=== PATIENT | female | born 1965 | race Caucasian/White ===

== ENCOUNTER 2017-03-19 03:00 | Emergency (ER) | payer MEDICARE, MEDICAID ==
[~2017-03-19 03:00] MED LIST: FLUO-202 PO; LORA-1456 PO; ONDA4TAB PO; PROM-110 PO; PROM25SU8 PR
[2017-03-19 03:10] VITALS: BP 145/97
[2017-03-19] MEDS ORDERED: LIRA0.6P3 SQ (03:15)
[2017-03-19] MEDS ORDERED: AMIT150T21 PO (03:15)
[2017-03-19] MEDS ORDERED: ATR80PT PO (03:15)
--- NOTE | 2017-03-19 03:28 | ER Report ---
History and Physical Time Seen By MD: 03:15 Hx. of Stated Complaint: BILATERAL FLANK PAIN AND "T-STRAP" PAIN. PT. STATES SHE JUST MOVED HERE AND HAS BEEN MORE ACTIVE THAN USUAL. DENIES ANY URINARY SYMPTOMS, NAUSE, VOMITING OR DIARRHEA. PT. STATES SHE HAS TRIED IBUPROFEN, HEAT AND ICE WITH NO RELIEF. HPI/ROS CHIEF COMPLAINT: Low back pain HISTORY OF PRESENT ILLNESS: 52-year-old with history of lumbar fusion presents with low back pain 2 days non-radiating nonmigrating in lower paraspinal muscles denies any traumatic mechanism pain feels like a muscular spasm is present bilaterally no hematuria dysuria or other urinary symptoms. No fevers chills nausea. She has had benefit from going in her daughter's Whirlpool bath with jets which helped. Ibuprofen was tried today. She has no muscle relaxers at home. She denies abdominal pain or other problems. No other concerns or complaints today. REVIEW OF SYSTEMS: Respiratory: No cough, no dyspnea. Cardiovascular: No chest pain, no palpitations. Gastrointestinal: No vomiting, no abdominal pain. Musculoskeletal: No extremity pain Allergies: Coded Allergies: Penicillins (Verified Allergy, Unknown, ANAPHYLAXIS, 03/19/17) Home Meds Reported Medications Atorvastatin (LIPITOR) 80 Mg Tab, 1 TAB PO QDAY, TAB 03/19/17 Liraglutide (VICTOZA 2-BEST) 0.6 Mg/0.1 Ml Pen.injctr, 0.6 MG SQ 03/19/17 Amitriptyline Hcl (AMITRIPTYLINE HCL) 150 Mg Tablet, 150 MG PO QHS, TAB 03/19/17 Fluoxetine Hcl (PROZAC) 20 Mg Capsule, 60 MG PO QDAY, CAPSULE 06/29/16 Discontinued Reported Medications Promethazine Hcl (PROMETHAZINE HCL) 25 Mg Tablet, PO Q8H, TAB 06/29/16 Ondansetron (ZOFRAN ODT) 4 Mg Tab.rapdis, PO Q12H, TAB.ANDI 06/29/16 Discontinued Scripts Lorazepam (ATIVAN) 1 Mg Tablet, 1 MG PO Q4-6H for 7 Days Prov:MARIELOS CORONA MD 06/29/16 Promethazine HCl (Phenergan) 25 Mg Supp.rect, 25 SUPP.RECT CA 2-4XD for 7 Days, #20 Prov:MARIELOS CORONA MD 06/29/16 Ondansetron (ZOFRAN ODT) 4 Mg Tab.rapdis, 4 MG PO Q6H Y for nausea, #20 TAB 0 Refills Prov:MARIELOS CORONA MD 06/29/16 Hx Substance Use Disorder: No Constitutional Vital Sign - Last 24 Hours 03/19/17 03:10 Temp 97.7 Pulse 98 Resp 20 B/P (MAP) 145/97 Pulse Ox 96 O2 Delivery Room Air Physical Exam General Appearance: The patient is alert, has no immediate need for airway protection and no signs of toxicity. No acute distress Eyes: Pupils equal and round no pallor or injection. ENT, Mouth: Mucous membranes are moist. Respiratory: There are no retractions, lungs are clear to auscultation. Cardiovascular: Regular rate and rhythm. No murmurs gallops or rubs Gastrointestinal: Abdomen is soft and non tender, no masses, bowel sounds normal. Neurological: [ ] Skin: Warm and dry, no rashes. Musculoskeletal: Neck is supple non tender. Extremities are nontender, nonswollen and have full range of motion. Paraspinous muscles and mild spasm bilaterally for muscle is mildly tender in the lumbar region DIFFERENTIAL DIAGNOSIS: After history and physical exam differential diagnosis was considered for muscle spasm no signs of epidural abscess transverse myelitis or cauda equina syndrome no signs of aneurysm or dissection no signs of kidney stones or pyelonephritis Medical Decision Making ED Course/Re-evaluation ED Course Home care follow-up and reasons to return were discussed including heat packs and use of prescription medications Decision to Disposition Date: Mar 19, 2017 Decision to Disposition Time: 03:28 Depart Departure Latest Vital Signs Vital Signs Date Time Temp Pulse Resp B/P (MAP) Pulse Ox O2 Delivery O2 Flow Rate FiO2 03/19/17 03:10 97.7 98 20 145/97 96 Room Air Impression: Primary Impression: Muscle spasm Additional Impression: Lumbago Condition: Improved Disposition: HOME OR SELF-CARE New Scripts Cyclobenzaprine Hcl (CYCLOBENZAPRINE HCL) 10 Mg Tablet 10 MG PO Q8H Y for MUSCLE SPASMS, #20 TAB 0 Refills Prov: CINDA RIVERA MD 03/19/17 Patient Instructions: Muscle Spasm (ED) Problem Qualifiers CINDA RIVERA MD Mar 19, 2017 03:28
[2017-03-19] MEDS ORDERED: CYCL10TA29 PO (03:31)
[2017-03-19] MEDS ORDERED: CYCLOBENZAPRINE HCL 10 MG TH ONE (03:45)
[2017-03-19] MEDS ORDERED: CYCLOBENZAPRINE HCL 10 MG TH PO ONE ×2 (03:50→03:55)
== END 2017-03-19 03:47 | disposition home or self-care (01) ==
LOC: ER 03:16
DX: M62.830 Muscle spasm of back (principal); M54.5 Low back pain
CPT/HCPCS: 99281

== ENCOUNTER 2017-04-24 14:45 | Emergency (ER) | payer MEDICARE ==
[~2017-04-24 14:45] MED LIST changes: +AMIT150T21 PO; +ATR80PT PO; +CYCL10TA29 PO; +LIRA0.6P3 SQ
--- NOTE | 2017-04-24 14:56 | ER Report ---
History and Physical Time Seen By MD: 00:00 Hx. of Stated Complaint: PATIENT REPORTS 3 WEEKS OF EAR INFECTION THAT WON'T CLEAR UP AND ONSET OF BACK PAIN TODAY HPI/ROS CHIEF COMPLAINT: Left ear pain and left back pain HISTORY OF PRESENT ILLNESS: 52-year-old female smoker comes emergency Department complaining of 2-3 weeks of left-sided ear pain patient states that she went to an outpatient and to her primary care was placed on antibiotics and still has fullness and hearing loss in her left ear patient says she was washing dishes earlier today and felt the muscles pull in her left lateral side of her back no shortness of breath no cough no fever chills no nausea vomiting chest pain no additional complaints noted REVIEW OF SYSTEMS: Respiratory: No cough, no dyspnea. Cardiovascular: No chest pain, no palpitations. Gastrointestinal: No vomiting, no abdominal pain. Musculoskeletal: Left-sided back pain Remainder of the 14 system rev: Yes Allergies: Coded Allergies: Penicillins (Verified Allergy, Unknown, ANAPHYLAXIS, 03/19/17) coconut (Verified Allergy, Unknown, 03/19/17) diphenhydramine (Verified Allergy, Unknown, 03/19/17) ketorolac (Verified Allergy, Unknown, 03/19/17) Home Meds Reported Medications Atorvastatin (LIPITOR) 80 Mg Tab, 1 TAB PO QDAY, TAB 03/19/17 Liraglutide (VICTOZA 2-BEST) 0.6 Mg/0.1 Ml Pen.injctr, 0.6 MG SQ 03/19/17 Amitriptyline Hcl (AMITRIPTYLINE HCL) 150 Mg Tablet, 150 MG PO QHS, TAB 03/19/17 Discontinued Reported Medications Fluoxetine Hcl (PROZAC) 20 Mg Capsule, 60 MG PO QDAY, CAPSULE 06/29/16 Discontinued Scripts Cyclobenzaprine Hcl (CYCLOBENZAPRINE HCL) 10 Mg Tablet, 10 MG PO Q8H Y for MUSCLE SPASMS, #20 TAB 0 Refills Prov:CINDA RIVERA MD 03/19/17 Reviewed Nurses Notes: Yes Old Medical Records Reviewed: Yes Hx Substance Use Disorder: No Constitutional Vital Sign - Last 24 Hours 04/24/17 14:50 Temp 97.5 Pulse 100 Resp 20 B/P (MAP) 138/81 Pulse Ox 90 O2 Delivery Room Air Physical Exam General Appearance: The patient is alert, has no immediate need for airway protection and no current signs of toxicity. [ ] Eyes: Pupils equal and round no injection. Respiratory: Chest is non tender, lungs are clear to auscultation. Cardiac: regular rate and rhythm [ ] Gastrointestinal: Abdomen is soft and non tender, no masses, bowel sounds normal. Musculoskeletal: Neck: Neck is supple and non tender. Extremities have full range of motion and are non tender. Skin: No rashes or lesions. Ear examination bilateral TMs are slightly bulging left greater than right otherwise unremarkable no sign of external canal inflammation and irritation no cerumen impaction no damage to the TM noted DIFFERENTIAL DIAGNOSIS: After history and physical exam differential diagnosis was considered for serous otitis muscle strain Medical Decision Making ED Course/Re-evaluation ED Course ED course 52-year-old female left-sided ear fullness and decreased hearing exam shows some fullness been T and we'll refer her to ENT for further evaluation or muscular skeletal back discomfort was reproducible with gentle palpation however was not reproducible with pressure from auscultation with lung sounds unclear if this is truly in a legitimate pain or not however was reproducible clearly not cardiac in nature was very sensitive to the touch evidence any dermal changes consistent with there being a shingles pattern I will bradycardia get a chest x-ray looking for possible pneumothorax and she is a smoker and cardiac Maladies this was normal patient be discharged with muscle relaxers advised to continue take her Tylenol and ibuprofen and follow-up with primary care up ENT for further workup Decision to Disposition Date: Apr 24, 2017 Decision to Disposition Time: 15:27 Depart Departure Latest Vital Signs Vital Signs Date Time Temp Pulse Resp B/P (MAP) Pulse Ox O2 Delivery O2 Flow Rate FiO2 04/24/17 14:50 97.5 100 20 138/81 90 Room Air Impression: Primary Impression: Muscle spasm Additional Impression: Serous otitis media Condition: Improved Disposition: HOME OR SELF-CARE Referrals: RAFFI REYES JR, MD 5 Days New Scripts Cyclobenzaprine Hcl (CYCLOBENZAPRINE HCL) 10 Mg Tablet 10 MG PO TID for PAIN, #9 TAB Prov: JOB MENDOZA MD 04/24/17 Patient Instructions: Muscle Strain (DC) Problem Qualifiers JOB MENDOZA MD Apr 24, 2017 14:56
--- NOTE | 2017-04-24 15:21 | RADIOLOGY IMAGING REPORT ---
FAC[place] [facility] [place]IENT NAME: Divya Girard : 1965 MR: [id number] V: [id number] EXAM DATE: ORDERING PHYSICIAN: JOB MENDOZA TECHNOLOGIST: Location: [facility] Patient: Divya Girard : 1965 Visit/Account:[id number] Date of Sevice: 04/24/2017 2 VIEWS CHEST INDICATION: Left-sided pain. COMPARISON: None available FINDINGS: Cardiomediastinal silhouette and pulmonary vessels within normal limits. There is no focal infiltrate or lobar consolidation. There is no pneumothorax or pleural effusion. No nodule. Upper abdomen is unremarkable. No acute abnormality. IMPRESSION: 1. No acute cardiopulmonary process. Report Dictated By: Jong Urban at 04/24/2017 3:15 PM Report E-Signed By: Jong Urban at 04/24/2017 3:17 PM WSN:[id number]
[2017-04-24] MEDS ORDERED: CYCL10TA29 PO (15:29)
[2017-04-24 15:35] VITALS: BP 124/76
== END 2017-04-24 15:38 | disposition home or self-care (01) ==
LOC: ER 14:50
DX: M62.830 Muscle spasm of back (principal); H65.92 Unspecified nonsuppurative otitis media, left ear
CPT/HCPCS: 71046; 99282

== ENCOUNTER 2017-08-12 18:25 | Emergency (ER) | payer MEDICARE ==
[2017-08-12] MEDS ORDERED: NS(*) 0.9% 1000 ML BAG 1,000 ML IV ONE (18:39)
--- NOTE | 2017-08-12 18:39 | ER Report ---
History and Physical Time Seen By MD: 18:39 Hx. of Stated Complaint: PT REPORTS "I THINK I HAVE PNEUMONIA" PT REPORTS FEELING "LOUSY" ALL WEEK BUT SOB STARTED GETTING WORSE OVER THE WEEKEND, PT REPORTS FEELING "HOT" BUT UNSURE OF FEVER, PT REPORTS DIZZINESS HPI/ROS 52 year old w valverde x 1 week , cough sputum production subjective fever Remainder of the 14 system rev: Yes Allergies: Coded Allergies: Penicillins (Verified Allergy, Unknown, ANAPHYLAXIS, 08/12/17) coconut (Verified Allergy, Unknown, 08/12/17) diphenhydramine (Verified Allergy, Unknown, 08/12/17) ketorolac (Verified Allergy, Unknown, 08/12/17) Home Meds Active Scripts Azithromycin (ZITHROMAX) 250 Mg Tablet, 1 TAB PO QDAY for 4 Days, #4 TAB Prov:CADE WEINBERG 08/12/17 Prednisone (PREDNISONE) 20 Mg Tablet, 20 MG PO BID, #10 TAB Prov:CADE WEINBERG 08/12/17 Reported Medications Hydrocodone Bit/Acetaminophen (NORCO 5-325 TABLET) 1 Each Tablet, 1 EACH PO TID , TAB 08/12/17 Bupropion Hcl (WELLBUTRIN SR) 150 Mg Tablet.er, 150 MG PO QDAY, TAB 08/12/17 Fluoxetine Hcl (PROZAC) 20 Mg Capsule, 60 MG PO QDAY, CAPSULE 08/12/17 Amitriptyline Hcl (AMITRIPTYLINE HCL) 50 Mg Tablet, 50 MG PO QHS, #5 TAB 08/12/17 Liraglutide (VICTOZA 2-ARNIE) 0.6 Mg/0.1 Ml Pen.injctr, 0.6 MG SQ 03/19/17 Discontinued Reported Medications Atorvastatin (LIPITOR) 80 Mg Tab, 1 TAB PO QDAY, TAB 03/19/17 Amitriptyline Hcl (AMITRIPTYLINE HCL) 150 Mg Tablet, 150 MG PO QHS, TAB 03/19/17 Discontinued Scripts Cyclobenzaprine Hcl (CYCLOBENZAPRINE HCL) 10 Mg Tablet, 10 MG PO TID for PAIN, # 9 TAB Prov:JOB MENDOZA MD 04/24/17 Past Medical/Surgical History COPD, migraines Reviewed Nurses Notes: Yes Old Medical Records Reviewed: Yes Hx Substance Use Disorder: No Constitutional Vital Sign - Last 24 Hours 6/25/18 6/25/18 6/25/18 6/25/18 18:30 18:32 18:45 18:52 Temp 98.2 Pulse 90 86 92 92 Resp 24 18 17 B/P (MAP) 135/85 Pulse Ox 92 92 92 O2 Delivery Room Air 08/12/17 08/12/17 08/12/17 08/12/17 18:52 19:00 19:08 19:15 Pulse 89 88 Resp 16 23 Pulse Ox 91 87 95 O2 Delivery Room Air O2 Flow Rate 2.0 08/12/17 08/12/17 08/12/17 08/12/17 19:30 20:00 20:05 20:15 Pulse 84 89 82 Resp 15 12 B/P (MAP) 148/91 (110) 132/78 (96) 08/12/17 08/12/17 08/12/17 08/12/17 20:30 20:45 20:56 20:56 Pulse 85 90 92 Resp 7 40 17 B/P (MAP) 124/64 (84) Pulse Ox 96 O2 Delivery Room Air 08/12/17 08/12/17 21:00 21:15 Pulse 94 95 Resp 20 15 B/P (MAP) 121/75 (90) Intake and Output 08/12/17 08/12/17 08/13/17 15:00 23:00 07:00 Intake Total 1000 ml Balance 1000 ml Physical Exam 52 year old alert anxious, colt throat non reddened, hrr, lungs crackles bilaterally, abd obese bs x 4 Medical Decision Making Data Points Result Diagram: 08/12/17183708/12/17 183 Laboratory Hematology Test 08/12/17 18:38 08/12/17 19:51 Red Blood Count 4.54 M/uL (4.17-5.56) Mean Corpuscular Volume 93.9 fL (80.0-96.0) Mean Corpuscular Hemoglobin 33.3 pg (26.0-33.0) Mean Corpuscular Hemoglobin Concent 35.4 g/dL (32.0-36.0) Red Cell Distribution Width 14.0 % (11.5-14.5) Mean Platelet Volume 9.1 fL (7.2-11.1) Neutrophils (%) (Auto) 61.5 % (39.4-72.5) Lymphocytes (%) (Auto) 27.4 % (17.6-49.6) Monocytes (%) (Auto) 8.2 % (4.1-12.4) Eosinophils (%) (Auto) 2.2 % (0.4-6.7) Basophils (%) (Auto) 0.7 % (0.3-1.4) Nucleated RBC Relative Count (auto) 0.1 /100WBC Neutrophils # (Auto) 5.3 K/uL (2.0-7.4) Lymphocytes # (Auto) 2.4 K/uL (1.3-3.6) Monocytes # (Auto) 0.7 K/uL (0.3-1.0) Eosinophils # (Auto) 0.2 K/uL (0.0-0.5) Basophils # (Auto) 0.1 K/uL (0.0-0.1) Nucleated RBC Absolute Count (auto) 0.01 K/uL D-Dimer Quantitative (PE/DVT) 0.30 ug/ml (0-0.50) Sodium Level 140 mmol/L (137-145) Potassium Level 3.7 mmol/L (3.5-5.0) Chloride Level 104 mmol/L (98-107) Carbon Dioxide Level 26 mmol/L (22-31) Blood Urea Nitrogen 7 mg/dl (7-18) Creatinine 0.70 mg/dl (0.52-1.04) Glomerular Filtration Rate Calc > 60.0 Random Glucose 143 mg/dl (75-110) Calcium Level 9.3 mg/dl (8.4-10.2) Total Bilirubin 0.3 mg/dl (0.2-1.3) Aspartate Amino Transf (AST/SGOT) 40 U/L (0-35) Alanine Aminotransferase (ALT/SGPT) 38 U/L (0-56) Alkaline Phosphatase 90 U/L (0-126) Troponin I < 0.012 ng/ml B-Type Natriuretic Peptide 34 pg/ml (0-100) Total Protein 6.3 g/dl (6.3-8.2) Albumin 3.7 g/dl (3.5-5.0) Urine Color Yellow Urine Clarity Clear Urine pH 6.0 pH (4.8-9.5) Urine Specific [place] 1.012 Urine Protein Negative mg/dL (NEGATIVE) Urine Glucose (UA) Negative mg/dL (NEGATIVE) Urine Ketones Negative mg/dL (NEGATIVE) Urine Blood Negative (NEGATIVE) Urine Nitrite Negative (NEGATIVE) Urine Bilirubin Negative (NEGATIVE) Urine Urobilinogen Negative mg/dL (0.2-1.9) Urine Leukocyte Esterase Negative (NEGATIVE) Urine RBC <1 /HPF (0-2/HPF) Urine WBC 1 /HPF (0-5/HPF) Urine Squamous Epithelial Cells Many /LPF (</=FEW) Urine Bacteria Negative /HPF (NONE-FEW) Urine Mucus Few /HPF (NONE-FEW) Chemistry Test 08/12/17 18:38 08/12/17 19:51 White Blood Count 8.6 k/uL (4.5-11.0) Red Blood Count 4.54 M/uL (4.17-5.56) Hemoglobin 15.1 g/dL (12.0-16.0) Hematocrit 42.7 % (34.0-47.0) Mean Corpuscular Volume 93.9 fL (80.0-96.0) Mean Corpuscular Hemoglobin 33.3 pg (26.0-33.0) Mean Corpuscular Hemoglobin Concent 35.4 g/dL (32.0-36.0) Red Cell Distribution Width 14.0 % (11.5-14.5) Platelet Count 198 K/uL (150-450) Mean Platelet Volume 9.1 fL (7.2-11.1) Neutrophils (%) (Auto) 61.5 % (39.4-72.5) Lymphocytes (%) (Auto) 27.4 % (17.6-49.6) Monocytes (%) (Auto) 8.2 % (4.1-12.4) Eosinophils (%) (Auto) 2.2 % (0.4-6.7) Basophils (%) (Auto) 0.7 % (0.3-1.4) Nucleated RBC Relative Count (auto) 0.1 /100WBC Neutrophils # (Auto) 5.3 K/uL (2.0-7.4) Lymphocytes # (Auto) 2.4 K/uL (1.3-3.6) Monocytes # (Auto) 0.7 K/uL (0.3-1.0) Eosinophils # (Auto) 0.2 K/uL (0.0-0.5) Basophils # (Auto) 0.1 K/uL (0.0-0.1) Nucleated RBC Absolute Count (auto) 0.01 K/uL D-Dimer Quantitative (PE/DVT) 0.30 ug/ml (0-0.50) Glomerular Filtration Rate Calc > 60.0 Calcium Level 9.3 mg/dl (8.4-10.2) Total Bilirubin 0.3 mg/dl (0.2-1.3) Aspartate Amino Transf (AST/SGOT) 40 U/L (0-35) Alanine Aminotransferase (ALT/SGPT) 38 U/L (0-56) Alkaline Phosphatase 90 U/L (0-126) Troponin I < 0.012 ng/ml B-Type Natriuretic Peptide 34 pg/ml (0-100) Total Protein 6.3 g/dl (6.3-8.2) Albumin 3.7 g/dl (3.5-5.0) Urine Color Yellow Urine Clarity Clear Urine pH 6.0 pH (4.8-9.5) Urine Specific [place] 1.012 Urine Protein Negative mg/dL (NEGATIVE) Urine Glucose (UA) Negative mg/dL (NEGATIVE) Urine Ketones Negative mg/dL (NEGATIVE) Urine Blood Negative (NEGATIVE) Urine Nitrite Negative (NEGATIVE) Urine Bilirubin Negative (NEGATIVE) Urine Urobilinogen Negative mg/dL (0.2-1.9) Urine Leukocyte Esterase Negative (NEGATIVE) Urine RBC <1 /HPF (0-2/HPF) Urine WBC 1 /HPF (0-5/HPF) Urine Squamous Epithelial Cells Many /LPF (</=FEW) Urine Bacteria Negative /HPF (NONE-FEW) Urine Mucus Few /HPF (NONE-FEW) Coagulation Test 08/12/17 18:38 D-Dimer Quantitative (PE/DVT) 0.30 ug/ml Urinalysis Test 08/12/17 19:51 Urine Color Yellow Urine Clarity Clear Urine pH 6.0 pH (4.8-9.5) Urine Specific [place] 1.012 Urine Protein Negative mg/dL (NEGATIVE) Urine Glucose (UA) Negative mg/dL (NEGATIVE) Urine Ketones Negative mg/dL (NEGATIVE) Urine Blood Negative (NEGATIVE) Urine Nitrite Negative (NEGATIVE) Urine Bilirubin Negative (NEGATIVE) Urine Urobilinogen Negative mg/dL (0.2-1.9) Urine Leukocyte Esterase Negative (NEGATIVE) Urine RBC <1 /HPF (0-2/HPF) Urine WBC 1 /HPF (0-5/HPF) Urine Squamous Epithelial Cells Many /LPF (</=FEW) Urine Bacteria Negative /HPF (NONE-FEW) Urine Mucus Few /HPF (NONE-FEW) EKG/Imaging Imaging FACILITY: [facility] PATIENT NAME: Divya Girard : 1965 MR: [id number] V: [id number] EXAM DATE: ORDERING PHYSICIAN: CADE WEINBERG TECHNOLOGIST: Location: [facility] Patient: Divya Girard : 1965 Visit/Account:[id number] Date of Sevice: 08/12/2017 Chest single view: HISTORY: Respiratory distress, history of smoking. COMPARISON: 04/24/2017 FINDINGS: Portable chest 1924 hours: Heart size is upper limits of normal. There is prominence of the bronchovascular and interstitial markings and mild peribronchial thickening, new compared to previous. There is no pleural effusion or pneumothorax. No evidence of overt congestive heart failure. IMPRESSION: Increased prominence of the bronchovascular and interstitial markings and peribronchial thickening, findings can be seen with bronchitis or a viral pneumonitis, clinically correlate. There is no radiographic evidence of a focal pneumonia or findings to suggest congestive heart failure. Report Dictated By: Melissa Zee MD at 08/12/2017 8:38 PM Report E-Signed By: Melissa Zee MD at 08/12/2017 8:40 PM WSN:[id number] ED Course/Re-evaluation ED Course Patient received narcotics for severe pack back pain from laying in stretcher this worked very well for her she received 2 nebulizer treatments in the emergency room +125 of Solu-Medrol IV push she tolerated this very well was given a single dose of azithromycin 500 mg we'll send her home on prednisone 40 daily 5 days plus a Z-Arnie Re-evaluation Sat 95% after treatment states that she is feeling better is willing to go home will follow-up with primary care physician diagnosis exacerbation of COPD bronchitis Decision to Disposition Date: Aug 12, 2017 Decision to Disposition Time: 20:51 Depart Departure Latest Vital Signs Vital Signs Date Time Temp Pulse Resp B/P (MAP) Pulse Ox O2 Delivery O2 Flow Rate FiO2 6/25/18 21:15 95 15 08/12/17 21:00 121/75 (90) 08/12/17 20:56 96 Room Air 08/12/17 19:08 2.0 08/12/17 18:32 98.2 Impression: Primary Impression: COPD (chronic obstructive pulmonary disease) Additional Impression: Smoking Condition: Improved Disposition: HOME OR SELF-CARE Referrals: [facility] 2 Days New Scripts Azithromycin (ZITHROMAX) 250 Mg Tablet 1 TAB PO QDAY for 4 Days, #4 TAB Prov: CADE WEINBERG 08/12/17 Prednisone (PREDNISONE) 20 Mg Tablet 20 MG PO BID, #10 TAB Prov: CADE WEINBERG 08/12/17 Patient Instructions: COPD (Chronic Obstructive Pulmonary Disease) (ED), Cigarette Smoking and Your Health (GEN), How to Stop Smoking (DC) Additional Instructions: Medications as instructed follow-up your primary care physician and return for any problems or concerns Problem Qualifiers CADE WEINBERG Aug 12, 2017 18:39
[2017-08-12] MEDS ORDERED: HYDR-4309 PO (18:40)
[2017-08-12] MEDS ORDERED: methylPREDNIS SUCC 125 MG/2ML IVP ONE (18:40)
[2017-08-12] MEDS ORDERED: ALBUTEROL/IPRATROPIUM 3 ML NEB NEB ONE (18:40)
[2017-08-12] MEDS ORDERED: AMIT-108 PO (18:40)
[2017-08-12] MEDS ORDERED: FLUO-202 PO (18:40)
[2017-08-12] MEDS ORDERED: BUPR-126 PO (18:40)
--- NOTE | 2017-08-12 18:52 | EKG ---
[place]AC[place] [facility] [place]IENT NAME: ROBIN HENDRICKSON : [id number] MR: [id number] V: [id number] EXAM DATE: ORDERING PHYSICIAN: CADE WEINBERG TECHNOLOGIST: BELEN Francisco Reason : SOB Blood Pressure : / mmHG Vent. Rate : 081 BPM Atrial Rate : 081 BPM P-R Int : 156 ms QRS Dur : 086 ms QT Int : 380 ms P-R-T Axes : 046 070 067 degrees QTc Int : 441 ms Normal sinus rhythm Nonspecific T wave abnormality Abnormal ECG No previous ECGs available Confirmed by MARIIA NARAYANAN ([id number]) on 08/13/2017 6:27:55 AM Referred By: SULTANA Confirmed By:MARIIA NARAYANAN
[2017-08-12 18:53] LABS: PLATELET COUNT, AUTOMATED 198 K/uL (150-450)
[2017-08-12] MEDS ORDERED: AZITHROMYCIN 250 MG TAB PO ONE (19:55)
--- NOTE | 2017-08-12 20:43 | RADIOLOGY IMAGING REPORT ---
FACILITY: [facility] - [place] PATIENT NAME: Divya Girard : 1965 MR: [id number] V: [id number] EXAM DATE: ORDERING PHYSICIAN: CADE WEINBERG TECHNOLOGIST: Location: [facility] - [place] Patient: Divya Girard : 1965 Visit/Account:[id number] Date of Sevice: 08/12/2017 Chest single view: HISTORY: Respiratory distress, history of smoking. COMPARISON: 04/24/2017 FINDINGS: Portable chest 1924 hours: Heart size is upper limits of normal. There is prominence of the bronchovascular and interstitial markings and mild peribronchial thickening, new compared to previou s. There is no pleural effusion or pneumothorax. No evidence of overt congestive heart failure. IMPRESSION: Increased prominence of the bronchovascular and interstitial markings and peribronchial t hickening, findings can be seen with bronchitis or a viral pneumonitis, clinically correlate. There i s no radiographic evidence of a focal pneumonia or findings to suggest congestive heart failure. Report Dictated By: Melissa Zee MD at 08/12/2017 8:38 PM Report E-Signed By: Melissa Zee MD at 08/12/2017 8:40 PM [id number]
[2017-08-12] MEDS ORDERED: ALBUTEROL 2.5 MG/3 ML NEB NEB ONE (20:45)
[2017-08-12] MEDS ORDERED: AZIT-1 PO (20:50)
[2017-08-12] MEDS ORDERED: PRED20TA6 PO (20:50)
[2017-08-12] MEDS ORDERED: MORPHINE 2 MG/ML SYR IVP ONE (20:55)
[2017-08-12 21:00] VITALS: BP 121/75
== END 2017-08-12 21:27 | disposition home or self-care (01) ==
LOC: ER 18:59
DX: J44.1 Chronic obstructive pulmonary disease with (acute) exacerbation (principal); R94.31 Abnormal electrocardiogram [ECG] [EKG]; F17.210 Nicotine dependence, cigarettes, uncomplicated
CPT/HCPCS: 36415; 71045; 81001; 83880; 84484; 85025; 85379; 87040; 93005; 94640; 96361; 96374; 96375; 99284; J2270; J2930; J7030; J7613; J7620; Q0144; 82040; 82247; 82310; 82374; 82435; 82565; 82947; 84075; 84132; 84155; 84295; 84450; 84460; 84520

== ENCOUNTER 2017-09-05 18:14 | Emergency (ER) | payer MEDICARE ==
[~2017-09-05 18:14] MED LIST changes: +AMIT-108 PO; +AZIT-1 PO; +BUPR-126 PO; +HYDR-4309 PO; +PRED20TA6 PO
[2017-09-05] MEDS ORDERED: ASPIRIN 81 MG CHEW PO ONE (18:25)
[2017-09-05] MEDS ORDERED: MORPHINE 4 MG/ML SDV IVP ONE (18:25)
[2017-09-05] MEDS ORDERED: NS(*) 0.9% 500 ML BAG 500 ML IV PRN (18:25)
[2017-09-05] MEDS ORDERED: ONDANSETRON 4 MG/2 ML VIAL IVP ONE (18:25)
[2017-09-05] MEDS ORDERED: NITROGLYCERIN OINT 1 GM PKT TP ONE (18:25)
[2017-09-05] MEDS ORDERED: HYDR-4308 PO (18:27)
--- NOTE | 2017-09-05 18:33 | EKG ---
[place] [facility] [place] NAME: ROBIN HEDNRICKSON : [id number] MR: [id number] V: [id number] EXAM DATE: ORDERING PHYSICIAN: BENITA PRAJAPATI TECHNOLOGIST: Test Reason : Blood Pressure : / mmHG Vent. Rate : 101 BPM Atrial Rate : 101 BPM P-R Int : 136 ms QRS Dur : 084 ms QT Int : 360 ms P-R-T Axes : 059 075 064 degrees QTc Int : 466 ms Sinus tachycardia T flattening consistent with anterior ischemia vs normal variant When compared with ECG of 12-AUG-2017 18:48, No significant change was found Confirmed by ERICA RAMOS ([id number]) on 09/05/2017 7:08:07 PM Referred By: Confirmed By:ERICA RAMOS
--- NOTE | 2017-09-05 18:33 | ER Report ---
History and Physical Time Seen By MD: 18:22 Hx. of Stated Complaint: CHEST PAIN WHILE WATCHING TV 45 MIN AGO. MID TO R SIDE RAD TO BACK HPI/ROS CHIEF COMPLAINT: Chest pain HISTORY OF PRESENT ILLNESS: This is a 52-year-old male presents to the emergency department for chest pain. Patient states that about 45 minutes prior to arrival she was sitting down watching television and developed a sudden onset of right-sided chest pain, the pain does radiate to the back. Patient states that since then she's had nausea, no vomiting the majority of the pain is on the right side. Patient states that she has had some diaphoresis. She did take a hydrocodone prior to coming in. No visual changes. Patient states she does have some shortness of breath as well. No recent travel. No headaches. No sore throats, fevers or chills. REVIEW OF SYSTEMS: Constitutional: No fever, no chills. Eyes: No discharge. ENT: No sore throat. Cardiovascular: As above. Respiratory: As above. Gastrointestinal: As above. Genitourinary: No hematuria. Musculoskeletal: No back pain. Skin: No rashes. Neurological: No headache. Allergies: Coded Allergies: Penicillins (Verified Allergy, Unknown, ANAPHYLAXIS, 09/05/17) coconut (Verified Allergy, Unknown, 09/05/17) diphenhydramine (Verified Allergy, Unknown, 09/05/17) ketorolac (Verified Allergy, Unknown, 09/05/17) Home Meds Reported Medications Hydrocodone Bit/Acetaminophen (NORCO 7.5-325 TABLET) 1 Each Tablet, 1 EACH PO TID 09/05/17 Bupropion Hcl (WELLBUTRIN SR) 150 Mg Tablet.er, 150 MG PO QDAY, TAB 08/12/17 Fluoxetine Hcl (PROZAC) 20 Mg Capsule, 60 MG PO QDAY, CAPSULE 08/12/17 Amitriptyline Hcl (AMITRIPTYLINE HCL) 50 Mg Tablet, 50 MG PO QHS, #5 TAB 08/12/17 Liraglutide (VICTOZA 2-BEST) 0.6 Mg/0.1 Ml Pen.injctr, 0.6 MG SQ 03/19/17 Discontinued Reported Medications Hydrocodone Bit/Acetaminophen (NORCO 5-325 TABLET) 1 Each Tablet, 1 EACH PO TID , TAB 08/12/17 Discontinued Scripts Azithromycin (ZITHROMAX) 250 Mg Tablet, 1 TAB PO QDAY for 4 Days, #4 TAB Prov:CADE WEINBERG HARDY-José Miguel 08/12/17 Prednisone (PREDNISONE) 20 Mg Tablet, 20 MG PO BID, #10 TAB Prov:CADE WEINBERG SIDE BOSS-C 08/12/17 Past Medical/Surgical History The patient has a past medical and surgical history of migraines, COPD, cyclical vomiting, back pain, wears glasses, depression, anxiety, suicide attempt, appendectomy, hysterectomy, L5-S1 fusion, tonsillectomy. Reviewed Nurses Notes: Yes Hx Substance Use Disorder: No Constitutional Vital Sign - Last 24 Hours 09/05/17 09/05/17 09/05/17 09/05/17 18:23 18:30 19:22 21:20 Temp 98.6 98.7 Pulse 103 98 Resp 24 16 B/P (MAP) 146/80 Pulse Ox 88 O2 Delivery Room Air O2 Flow Rate 2.0 09/05/17 09/05/17 21:20 21:25 Pulse 96 Resp 16 Pulse Ox 94 O2 Delivery Nasal Cannula O2 Flow Rate 2.0 Physical Exam General Appearance: The patient is alert, has no immediate need for airway protection and no signs of toxicity, anxious. Eyes: Pupils equal and round no pallor or injection. ENT, Mouth: Mucous membranes are moist. Respiratory: There are no retractions, lung sounds diminished in the lower edmondson bilaterally, diminished in the right middle. Cardiovascular: Regular rate and rhythm, no murmurs, clicks or rubs. Gastrointestinal: Abdomen is very round, firm and non tender, no masses, hypoactive bowel sounds. No abdominal bruits Neurological: Alert and oriented 4. Moving all extremities. Following all commands. No focal neuro deficits. Skin: Warm and dry, no rashes. Musculoskeletal: Neck is supple non tender. Extremities are nontender, nonswollen and have full range of motion. DIFFERENTIAL DIAGNOSIS: After history and physical exam differential diagnosis was considered for chest pain including but not limited to myocardial ischemia, pericarditis pulmonary embolus, chest wall pain, pleural inflammation and pulmonary infectious causes. Medical Decision Making Data Points Result Diagram: 09/05/17 1820 09/05/17 1820 Laboratory Hematology Test 09/05/17 18:20 09/05/17 21:09 Red Blood Count 4.90 M/uL (4.17-5.56) Mean Corpuscular Volume 94.9 fL (80.0-96.0) Mean Corpuscular Hemoglobin 33.0 pg (26.0-33.0) Mean Corpuscular Hemoglobin Concent 34.8 g/dL (32.0-36.0) Red Cell Distribution Width 13.7 % (11.5-14.5) Mean Platelet Volume 9.5 fL (7.2-11.1) Neutrophils (%) (Auto) 59.3 % (39.4-72.5) Lymphocytes (%) (Auto) 30.9 % (17.6-49.6) Monocytes (%) (Auto) 8.0 % (4.1-12.4) Eosinophils (%) (Auto) 0.5 % (0.4-6.7) Basophils (%) (Auto) 1.3 % (0.3-1.4) Nucleated RBC Relative Count (auto) 0.1 /100WBC Neutrophils # (Auto) 8.3 K/uL (2.0-7.4) Lymphocytes # (Auto) 4.3 K/uL (1.3-3.6) Monocytes # (Auto) 1.1 K/uL (0.3-1.0) Eosinophils # (Auto) 0.1 K/uL (0.0-0.5) Basophils # (Auto) 0.2 K/uL (0.0-0.1) Nucleated RBC Absolute Count (auto) 0.01 K/uL Peripheral Blood Smear Yes Y/N D-Dimer Quantitative (PE/DVT) 0.29 ug/ml (0-0.50) Sodium Level 136 mmol/L (137-145) Potassium Level 3.3 mmol/L (3.5-5.0) Chloride Level 95 mmol/L (98-107) Carbon Dioxide Level 29 mmol/L (22-31) Blood Urea Nitrogen 15 mg/dl (7-18) Creatinine 0.70 mg/dl (0.52-1.04) Glomerular Filtration Rate Calc > 60.0 Random Glucose 286 mg/dl (75-110) Calcium Level 10.0 mg/dl (8.4-10.2) Total Bilirubin 0.4 mg/dl (0.2-1.3) Aspartate Amino Transf (AST/SGOT) 28 U/L (0-35) Alanine Aminotransferase (ALT/SGPT) 38 U/L (0-56) Alkaline Phosphatase 100 U/L (0-126) Total Protein 7.4 g/dl (6.3-8.2) Albumin 4.6 g/dl (3.5-5.0) Troponin I < 0.012 ng/ml Chemistry Test 09/05/17 18:20 09/05/17 21:09 White Blood Count 14.1 k/uL (4.5-11.0) Red Blood Count 4.90 M/uL (4.17-5.56) Hemoglobin 16.2 g/dL (12.0-16.0) Hematocrit 46.5 % (34.0-47.0) Mean Corpuscular Volume 94.9 fL (80.0-96.0) Mean Corpuscular Hemoglobin 33.0 pg (26.0-33.0) Mean Corpuscular Hemoglobin Concent 34.8 g/dL (32.0-36.0) Red Cell Distribution Width 13.7 % (11.5-14.5) Platelet Count 288 K/uL (150-450) Mean Platelet Volume 9.5 fL (7.2-11.1) Neutrophils (%) (Auto) 59.3 % (39.4-72.5) Lymphocytes (%) (Auto) 30.9 % (17.6-49.6) Monocytes (%) (Auto) 8.0 % (4.1-12.4) Eosinophils (%) (Auto) 0.5 % (0.4-6.7) Basophils (%) (Auto) 1.3 % (0.3-1.4) Nucleated RBC Relative Count (auto) 0.1 /100WBC Neutrophils # (Auto) 8.3 K/uL (2.0-7.4) Lymphocytes # (Auto) 4.3 K/uL (1.3-3.6) Monocytes # (Auto) 1.1 K/uL (0.3-1.0) Eosinophils # (Auto) 0.1 K/uL (0.0-0.5) Basophils # (Auto) 0.2 K/uL (0.0-0.1) Nucleated RBC Absolute Count (auto) 0.01 K/uL Peripheral Blood Smear Yes Y/N D-Dimer Quantitative (PE/DVT) 0.29 ug/ml (0-0.50) Glomerular Filtration Rate Calc > 60.0 Calcium Level 10.0 mg/dl (8.4-10.2) Total Bilirubin 0.4 mg/dl (0.2-1.3) Aspartate Amino Transf (AST/SGOT) 28 U/L (0-35) Alanine Aminotransferase (ALT/SGPT) 38 U/L (0-56) Alkaline Phosphatase 100 U/L (0-126) Total Protein 7.4 g/dl (6.3-8.2) Albumin 4.6 g/dl (3.5-5.0) Troponin I < 0.012 ng/ml Coagulation Test 09/05/17 18:20 D-Dimer Quantitative (PE/DVT) 0.29 ug/ml EKG/Imaging EKG Interpretation 12 lead EKG: Time of EKG 1827. Rhythm: Sinus tachycardia, 101 bpm. [place]: normal QRS: normal ST segments: No ST depression or elevation identified. Flattened T waves throughout. 12 lead EKG: Time of repeat EKG 2115. Rhythm: Normal sinus rhythm, ventricular rate 96 bpm. [place]: normal QRS: normal ST segments: No ST depression or elevation identified. Flattened T waves throughout. No significant changes from the previous EKG. Imaging Location: [facility] Patient: Divya Girard : 1965 Visit/Account:[id number] Date of Sevice: 09/05/2017 EXAMINATION: Chest radiographs 2 views HISTORY: Chest pain. COMPARISON: 08/12/2017. FINDINGS: PA and lateral views of the chest are submitted. Lines/tubes: None. Lungs/pleura: No focal consolidation or pleural effusion. Pulmonary vascularity is within normal limits. No evidence of pneumothorax. Heart: Normal heart size. Mediastinum: Mediastinal contours are within normal limits. Bony structures/body wall: Negative. IMPRESSION: No radiographic evidence of acute cardiopulmonary disease. Report Dictated By: Eze Miller MD at 09/05/2017 6:55 PM Report E-Signed By: Eze Miller MD at 09/05/2017 6:58 PM WSN:[id number] INDICATION: LEFT upper quad and epigastric pain. COMPARISON: Same-day chest radiographs.. TECHNIQUE: Contrast enhanced abdomen and pelvis CT performed during the injection of 75 ml of Isovue 370. Sagittal and coronal reconstructions were performed. One of the following dose optimization techniques was utilized in the performance of this exam: Automated exposure control; adjustment of the mA and/or kV according to the patient's size; or use of an iterative reconstruction technique. Specific details can be referenced in the facility's radiology CT exam operational policy. FINDINGS: Lung bases: Minimal atelectasis. Liver and hepatic vasculature: The liver is at least moderately enlarged and is prominently hypoattenuating. No focal lesion or acute abnormality. Gallbladder and bile ducts: Normal. Spleen: Normal. Pancreas: Normal. Adrenals: Normal. Kidneys, ureters and bladder: Normal. Retroperitoneum and aorta: Nonaneurysmal aorta with mild atherosclerosis. No adenopathy. GI tract, mesentery and peritoneum: Nonacute. Appendectomy with residual appendiceal stump. Uterus and adnexa: Hysterectomy. Left ovary is unremarkable. Bones and soft tissues: No acute abnormality or suspicious lesion. Remote posterior fracture of the right 8th rib. L5-S1 fusion laminectomies. Tiny fat- containing umbilical hernia. IMPRESSION: 1. No acute abnormality. 2. At least moderate hepatomegaly and steatosis. Report Dictated By: Miguel A Kyle MD at 09/05/2017 8:34 PM Report E-Signed By: Miguel A Kyle MD at 09/05/2017 8:40 PM WSN:[id number] ED Course/Re-evaluation Clinical Indication for ER IV: Hydration, IV Access ED Course The patient was admitted to room. A history and physical obtained. Differential diagnoses were considered. An IV was started. A CBC, CMP, troponin, d-dimer were obtained. EKG showing sinus tachycardia otherwise unremarkable. CBC showing white blood cell count 14.1, no left shift, negative d-dimer, negative troponin. Chemistry showing glucose at 286. Two-view chest x-ray was negative for any acute current pulmonary processes. I did review these results with the patient. Patient states since the initial pain medications were given she did have some resolution of her chest pain however to migrate to the abdomen is notable. Patient was in agreement with a abdomen pelvis CT. repeat EKG sinus rhythm no significant changes from the previous EKG. Negative repeat troponin. I did review these results with the patient. I did tell her did not have a clear explanation as when she had the chest pain or abdominal pain. I did tell her that this could be secondary to her chronic back pain. I did tell her to follow up with her pain specialist and her primary care provider within the next week. Patient was in agreement with this plan of care and discharged home. Patient was also instructed to wear her CPAP at night. 09/05/2017 7:18:37 pm the patient states the pain has resolved in her chest but now she has diffuse abdominal pain. I did review the chest x-ray results with the patient. I did tell her the next step with diffuse abdominal pain would be a CT. Patient's going to think about this. 09/05/2017 7:35:26 pm I did reassess the patient after she received the fentanyl, she does have left upper quadrant and epigastric pain. She is agreeable to the CT. Decision to Disposition Date: Sep 05, 2017 Decision to Disposition Time: 21:45 Depart Departure Latest Vital Signs Vital Signs Date Time Temp Pulse Resp B/P (MAP) Pulse Ox O2 Delivery O2 Flow Rate FiO2 09/05/17 21:25 96 16 09/05/17 21:20 94 Nasal Cannula 2.0 09/05/17 19:22 98.7 09/05/17 18:23 146/80 Impression: Primary Impression: Chest pain of unknown etiology Additional Impression: Abdominal pain of unknown etiology Condition: Improved Disposition: HOME OR SELF-CARE Patient Instructions: Abdominal Pain (ED), Chest Pain (ED) Additional Instructions: Drink plenty of fluids. Get plenty of rest. Be sure to wear your CPAP at night. Continue taking your medications as prescribed. Follow-up with your primary care provider within 2-4 days. Return to the emergency department for any other concerns or worsening symptoms. Problem Qualifiers BENITA PRAJAPATI DESIGNER/WRITER-BC Sep 05, 2017 18:33
[2017-09-05 18:39] LABS: PLATELET COUNT, AUTOMATED 288 K/uL (150-450)
--- NOTE | 2017-09-05 19:02 | RADIOLOGY IMAGING REPORT ---
FACILITY: [facility] - [place] PATIENT NAME: Divya Girard : 1965 MR: [id number] V: [id number] EXAM DATE: ORDERING PHYSICIAN: BENITA PRAJAPATI TECHNOLOGIST: Location: [facility] - [place] Patient: Divya Girard : 1965 Visit/Account:[id number] Date of Sevice: 09/05/2017 EXAMINATION: Chest radiographs 2 views HISTORY: Chest pain. COMPARISON: 08/12/2017. FINDINGS: PA and lateral views of the chest are submitted. Lines/tubes: None. Lungs/pleura: No focal consolidation or pleural effusion. Pulmonary vascularity is within normal wolff its. No evidence of pneumothorax. Heart: Normal heart size. Mediastinum: Mediastinal contours are within normal limits. Bony structures/body wall: Negative. IMPRESSION: No radiographic evidence of acute cardiopulmonary disease. Report Dictated By: Eze Miller MD at 09/05/2017 6:55 PM Report E-Signed By: Eze Miller MD at 09/05/2017 6:58 PM WSN:[id number]
[2017-09-05] MEDS ORDERED: fentaNYL CITR 100 MCG/2 ML AMP IVP ONE (19:15)
[2017-09-05] MEDS ORDERED: IOPAMIDOL 76% 100 ML INFUS BTL 100 ML ONE (20:01)
--- NOTE | 2017-09-05 20:44 | RADIOLOGY IMAGING REPORT ---
FACILITY: [facility] PATIENT NAME: Divya Girard : 1965 MR: [id number] V: [id number] EXAM DATE: ORDERING PHYSICIAN: BENITA PRAJAPATI TECHNOLOGIST: Location: [facility] [place] Patient: Divya Girard : 1965 Visit/Account:[id number] Date of Sevice: 09/05/2017 COMPUTED TOMOGRAPHY ABDOMEN AND PELVIS WITH INTRAVENOUS CONTRAST DATE OF EXAM: 09/05/2017 7:33 PM INDICATION: LEFT upper quad and epigastric pain. COMPARISON: Same-day chest radiographs.. TECHNIQUE: Contrast enhanced abdomen and pelvis CT performed during the injection of 75 ml of Isovue 370. Sagittal and coronal reconstructions were performed. One of the following dose optimization te chniques was utilized in the performance of this exam: Automated exposure control; adjustment of the mA and/or kV according to the patient's size; or use of an iterative reconstruction technique. Spec [facility] details can be referenced in the facility's radiology CT exam operational policy. FINDINGS: Lung bases: Minimal atelectasis. Liver and hepatic vasculature: The liver is at least moderately enlarged and is prominently hypoatte nuating. No focal lesion or acute abnormality. Gallbladder and bile ducts: Normal. Spleen: Normal. Pancreas: Normal. Adrenals: Normal. Kidneys, ureters and bladder: Normal. Retroperitoneum and aorta: Nonaneurysmal aorta with mild atherosclerosis. No adenopathy. GI tract, mesentery and peritoneum: Nonacute. Appendectomy with residual appendiceal stump. Uterus and adnexa: Hysterectomy. Left ovary is unremarkable. Bones and soft tissues: No acute abnormality or suspicious lesion. Remote posterior fracture of the right 8th rib. L5-S1 fusion laminectomies. Tiny fat-containing umbilical hernia. IMPRESSION: 1. No acute abnormality. 2. At least moderate hepatomegaly and steatosis. Report Dictated By: Miguel A Kyle MD at 09/05/2017 8:34 PM Report E-Signed By: Miguel A Kyle MD at 09/05/2017 8:40 PM WSN:[id number]
[2017-09-05] MEDS ORDERED: ALBUTEROL/IPRATROPIUM 3 ML NEB NEB ONE (20:50)
--- NOTE | 2017-09-05 21:40 | EKG ---
[place]AC[place] [facility] [place] PATIENT NAME: ROBIN HENDRICKSON : [id number] MR: [id number] V: [id number] EXAM DATE: ORDERING PHYSICIAN: BENITA PRAJAPATI TECHNOLOGIST: TIMOTEO Francisco Reason : CHEST PAIN Blood Pressure : / mmHG Vent. Rate : 096 BPM Atrial Rate : 096 BPM P-R Int : 144 ms QRS Dur : 084 ms QT Int : 354 ms P-R-T Axes : 065 069 059 degrees QTc Int : 447 ms Normal sinus rhythm Normal ECG When compared with ECG of 05-SEP-2017 18:28, Relatively unchanged Confirmed by ERICA RAMOS ([id number]) on 09/06/2017 7:33:51 AM Referred By: Confirmed By:ERICA RAMOS
== END 2017-09-05 22:00 | disposition home or self-care (01) ==
LOC: ER 18:40
DX: R07.9 Chest pain, unspecified (principal); R10.12 Left upper quadrant pain; J44.9 Chronic obstructive pulmonary disease, unspecified; G89.29 Other chronic pain; F41.8 Other specified anxiety disorders; Z90.710 Acquired absence of both cervix and uterus; Z98.1 Arthrodesis status
CPT/HCPCS: 36415; 84484; 85025; 85379; 93005; 94640; 96361; 96374; 96375; 99284; A9270; J2270; J2405; J3010; J7040; J7620; Q9967; 71046; 74177; 82040; 82247; 82310; 82374; 82435; 82565; 82947; 84075; 84132; 84155; 84295; 84450; 84460; 84520

== ENCOUNTER → 2017-09-16 | Outpatient (CLI) | payer MEDICARE, MEDICAID ==
[~2017-09-16] MED LIST changes: +GADOBENATE 529MG/1ML 15ML VIAL IVP ONE; +HYDR-4308 PO
--- NOTE | 2017-09-16 11:25 | RADIOLOGY IMAGING REPORT ---
FACILITY: [facility] - [place] PATIENT NAME: Divya Girard : 1965 MR: [id number] V: [id number] EXAM DATE: ORDERING PHYSICIAN: NOEL WESTBROOK TECHNOLOGIST: Location: [facility] - [place] Patient: Divya Girard : 1965 Visit/Account:[id number] Date of Sevice: 09/16/2017 L SPINE W W/O CONTRAST COMPARISON: None Additional pertinent history: Low back pain while standing. History of L5-S1 fusion in 1999 Technique: Multiplanar multisequence lumbar spine MRI was performed with and without gadolinium enhan cement. Contrast: 7 ml of MultiHance FINDINGS: Postoperative changes: Patient status post previous posterior interbody fusion of L5-S1 with previous bilateral laminectomies at this level. Vertebral body heights and alignment: Negative. Vertebral marrow signal: Negative. Distal thoracic cord and conus: Negative. The conus ends at L1. Surrounding soft tissues: Negative. Inspection of the disc spaces reveal the following: L5-S1: Postoperative changes without significant disc bulge or disc protrusion. No significant canal or neural foraminal narrowing. No pathologic enhancement at this level. L4-L5: Posterior broad-based disc protrusion with ligamentum flavum and facet overgrowth. Moderate bi lateral neural foraminal narrowing with moderate canal stenosis. L3-L4: Posterior broad-based disc protrusion with a left central and left lateral recess disc extrusi on. Findings of moderate central canal stenosis as well as left lateral recess stenosis. This causes significant impingement upon the traversing left L4 nerve root. There is also extension of the disc e xtrusion into the left neural foramen with some impingement upon the exiting left L3 nerve root as we ll. No significant right-sided neural foraminal narrowing. L2-L3: Minimal circumferential disc bulging with facet hypertrophic changes. No significant canal or neural foraminal narrowing. L1-L2: Negative. T12-L1: Negative. Pathologic enhancement: Negative. IMPRESSION: 1. Postoperative and spondylitic change as discussed above. 2. Findings felt to be potentially most significant at L3-L4 with moderate central canal stenosis as well as severe left lateral recess stenosis and left neural foraminal narrowing with impingement upon the traversing left L4 nerve root in the exiting left L3 nerve root. 3. Other spondylitic change as detailed above. Report Dictated By: Jefe Vera MD at 09/16/2017 11:12 AM Report E-Signed By: Jefe Vera MD at 09/16/2017 11:21 AM WSN:[id number]
== END ==
LOC: MRI 07:23
DX: M48.061 Spinal stenosis, lumbar region without neurogenic claudication (principal); M47.896 Other spondylosis, lumbar region; Z98.890 Other specified postprocedural states
CPT/HCPCS: 72158; A9577

== ENCOUNTER 2017-10-02 15:05 | Emergency (ER) | payer MEDICARE, MEDICAID ==
[~2017-10-02 15:05] MED LIST changes: -GADOBENATE 529MG/1ML 15ML VIAL IVP ONE
[2017-10-02] MEDS ORDERED: NS(*) 0.9% 1000 ML BAG 1,000 ML IV ONE (15:21)
[2017-10-02] MEDS ORDERED: ONDANSETRON 4 MG/2 ML VIAL IVP ONE (15:25)
--- NOTE | 2017-10-02 15:28 | ER Report ---
History and Physical Time Seen By MD: 15:20 Hx. of Stated Complaint: right sided flank pain. hurts to breath and goes around into her back. pain for a week, mild until today HPI/ROS CHIEF COMPLAINT: Right upper quadrant pain HISTORY OF PRESENT ILLNESS: 52-year-old female comes in with 2-3 days of intermittent right upper quadrant pain she's had this numerous times the past without any formal diagnosis patient states the pain is sharp and stabbing localized the right upper quadrant woke with headache and this morning is sometimes worse after meals nausea without vomiting no diarrhea no fever chills or sweats no chest pain or shortness of breath no surgical history REVIEW OF SYSTEMS: Respiratory: No cough, no dyspnea. Cardiovascular: No chest pain, no palpitations. Gastrointestinal: Right upper quadrant abdominal pain Musculoskeletal: No back pain. Remainder of the 14 system rev: Yes Allergies: Coded Allergies: Penicillins (Verified Allergy, Unknown, ANAPHYLAXIS, 10/02/17) coconut (Verified Allergy, Unknown, 10/02/17) diphenhydramine (Verified Allergy, Unknown, 10/02/17) ketorolac (Verified Allergy, Unknown, 10/02/17) Home Meds Reported Medications Hydrocodone Bit/Acetaminophen (NORCO 7.5-325 TABLET) 1 Each Tablet, 1 EACH PO TID 09/05/17 Bupropion Hcl (WELLBUTRIN SR) 150 Mg Tablet.er, 150 MG PO QDAY, TAB 08/12/17 Fluoxetine Hcl (PROZAC) 20 Mg Capsule, 60 MG PO QDAY, CAPSULE 08/12/17 Amitriptyline Hcl (AMITRIPTYLINE HCL) 50 Mg Tablet, 50 MG PO QHS, #5 TAB 08/12/17 Liraglutide (VICTOZA 2-BEST) 0.6 Mg/0.1 Ml Pen.injctr, 0.6 MG SQ 03/19/17 Reviewed Nurses Notes: Yes Old Medical Records Reviewed: Yes Hx Substance Use Disorder: No Hx Alcohol Use: No Constitutional Vital Sign - Last 24 Hours 10/02/17 10/02/17 15:07 15:39 Temp 98.0 Pulse 95 Resp 14 B/P (MAP) 147/105 Pulse Ox 92 O2 Delivery Room Air O2 Flow Rate 2.0 Physical Exam General Appearance: The patient is alert, has no immediate need for airway protection and no current signs of toxicity. [ ] Eyes: Pupils equal and round no injection. Respiratory: Chest is non tender, lungs are clear to auscultation. Cardiac: regular rate and rhythm [ ] Gastrointestinal: Abdominal examination pain to the right upper quadrant positive Arguelles's no guarding and no rebound no epigastric or additional abdominal pain neurovascularly intact normal bowel sounds otherwise unremarkable exam Musculoskeletal: Neck: Neck is supple and non tender. Extremities have full range of motion and are non tender. Skin: No rashes or lesions. [ ] DIFFERENTIAL DIAGNOSIS: After history and physical exam differential diagnosis was considered for gallbladder cholecystitis cholangitis ascending cholangitis cholecystitis enteritis or gastroenteritis Medical Decision Making Data Points Result Diagram: 10/02/17 1250 10/02/17 1250 Laboratory Hematology Test 10/02/17 12:50 10/02/17 15:27 Red Blood Count 5.20 M/uL (4.17-5.56) Mean Corpuscular Volume 95.4 fL (80.0-96.0) Mean Corpuscular Hemoglobin 33.6 pg (26.0-33.0) Mean Corpuscular Hemoglobin Concent 35.2 g/dL (32.0-36.0) Red Cell Distribution Width 13.0 % (11.5-14.5) Mean Platelet Volume 9.2 fL (7.2-11.1) Neutrophils (%) (Auto) 58.8 % (39.4-72.5) Lymphocytes (%) (Auto) 29.8 % (17.6-49.6) Monocytes (%) (Auto) 9.1 % (4.1-12.4) Eosinophils (%) (Auto) 1.5 % (0.4-6.7) Basophils (%) (Auto) 0.8 % (0.3-1.4) Nucleated RBC Relative Count (auto) 0.0 /100WBC Neutrophils # (Auto) 4.3 K/uL (2.0-7.4) Lymphocytes # (Auto) 2.2 K/uL (1.3-3.6) Monocytes # (Auto) 0.7 K/uL (0.3-1.0) Eosinophils # (Auto) 0.1 K/uL (0.0-0.5) Basophils # (Auto) 0.1 K/uL (0.0-0.1) Nucleated RBC Absolute Count (auto) 0.00 K/uL Prothrombin Time 13.0 seconds (12.0-14.4) Prothromb Time International Ratio 0.98 Activated Partial Thromboplast Time 26 seconds (23-35) Sodium Level 140 mmol/L (137-145) Potassium Level 3.4 mmol/L (3.5-5.0) Chloride Level 105 mmol/L (98-107) Carbon Dioxide Level 22 mmol/L (22-31) Blood Urea Nitrogen 12 mg/dl (7-18) Creatinine 0.60 mg/dl (0.52-1.04) Glomerular Filtration Rate Calc > 60.0 Random Glucose 290 mg/dl (75-110) Calcium Level 9.4 mg/dl (8.4-10.2) Total Bilirubin 0.5 mg/dl (0.2-1.3) Aspartate Amino Transf (AST/SGOT) 23 U/L (0-35) Alanine Aminotransferase (ALT/SGPT) 27 U/L (0-56) Alkaline Phosphatase 92 U/L (0-126) Total Protein 6.9 g/dl (6.3-8.2) Albumin 4.4 g/dl (3.5-5.0) Lipase 65 U/L (23-300) Serum Alcohol < 10 mg/dl Urine Color Yellow Urine Clarity Clear Urine pH 6 pH (4.8-9.5) Urine Specific [place] 1.025 Urine Protein 30 mg/dL (NEGATIVE) Urine Glucose (UA) 250 mg/dL (NEGATIVE) Urine Ketones 15 mg/dL (NEGATIVE) Urine Blood Negative (NEGATIVE) Urine Nitrite Negative (NEGATIVE) Urine Bilirubin Negative (NEGATIVE) Urine Urobilinogen 0.2 mg/dL (0.2-1.9) Urine Leukocyte Esterase Negative (NEGATIVE) Urine RBC None /HPF (0-2/HPF) Urine WBC 0-2 /HPF (0-5/HPF) Urine Squamous Epithelial Cells Rare /LPF (</=FEW) Urine Renal Epithelial Cells Few /LPF (NONE-FEW) Urine Bacteria Negative /HPF (NONE-FEW) Urine Mucus None /HPF (NONE-FEW) Chemistry Test 10/02/17 12:50 10/02/17 15:27 White Blood Count 7.2 k/uL (4.5-11.0) Red Blood Count 5.20 M/uL (4.17-5.56) Hemoglobin 17.5 g/dL (12.0-16.0) Hematocrit 49.7 % (34.0-47.0) Mean Corpuscular Volume 95.4 fL (80.0-96.0) Mean Corpuscular Hemoglobin 33.6 pg (26.0-33.0) Mean Corpuscular Hemoglobin Concent 35.2 g/dL (32.0-36.0) Red Cell Distribution Width 13.0 % (11.5-14.5) Platelet Count 217 K/uL (150-450) Mean Platelet Volume 9.2 fL (7.2-11.1) Neutrophils (%) (Auto) 58.8 % (39.4-72.5) Lymphocytes (%) (Auto) 29.8 % (17.6-49.6) Monocytes (%) (Auto) 9.1 % (4.1-12.4) Eosinophils (%) (Auto) 1.5 % (0.4-6.7) Basophils (%) (Auto) 0.8 % (0.3-1.4) Nucleated RBC Relative Count (auto) 0.0 /100WBC Neutrophils # (Auto) 4.3 K/uL (2.0-7.4) Lymphocytes # (Auto) 2.2 K/uL (1.3-3.6) Monocytes # (Auto) 0.7 K/uL (0.3-1.0) Eosinophils # (Auto) 0.1 K/uL (0.0-0.5) Basophils # (Auto) 0.1 K/uL (0.0-0.1) Nucleated RBC Absolute Count (auto) 0.00 K/uL Prothrombin Time 13.0 seconds (12.0-14.4) Prothromb Time International Ratio 0.98 Activated Partial Thromboplast Time 26 seconds (23-35) Glomerular Filtration Rate Calc > 60.0 Calcium Level 9.4 mg/dl (8.4-10.2) Total Bilirubin 0.5 mg/dl (0.2-1.3) Aspartate Amino Transf (AST/SGOT) 23 U/L (0-35) Alanine Aminotransferase (ALT/SGPT) 27 U/L (0-56) Alkaline Phosphatase 92 U/L (0-126) Total Protein 6.9 g/dl (6.3-8.2) Albumin 4.4 g/dl (3.5-5.0) Lipase 65 U/L (23-300) Serum Alcohol < 10 mg/dl Urine Color Yellow Urine Clarity Clear Urine pH 6 pH (4.8-9.5) Urine Specific [place] 1.025 Urine Protein 30 mg/dL (NEGATIVE) Urine Glucose (UA) 250 mg/dL (NEGATIVE) Urine Ketones 15 mg/dL (NEGATIVE) Urine Blood Negative (NEGATIVE) Urine Nitrite Negative (NEGATIVE) Urine Bilirubin Negative (NEGATIVE) Urine Urobilinogen 0.2 mg/dL (0.2-1.9) Urine Leukocyte Esterase Negative (NEGATIVE) Urine RBC None /HPF (0-2/HPF) Urine WBC 0-2 /HPF (0-5/HPF) Urine Squamous Epithelial Cells Rare /LPF (</=FEW) Urine Renal Epithelial Cells Few /LPF (NONE-FEW) Urine Bacteria Negative /HPF (NONE-FEW) Urine Mucus None /HPF (NONE-FEW) Coagulation Test 10/02/17 12:50 Prothrombin Time 13.0 seconds Prothromb Time International Ratio 0.98 Activated Partial Thromboplast Time 26 seconds Toxicology Test 10/02/17 12:50 Serum Alcohol < 10 mg/dl Urinalysis Test 10/02/17 15:27 Urine Color Yellow Urine Clarity Clear Urine pH 6 pH (4.8-9.5) Urine Specific [place] 1.025 Urine Protein 30 mg/dL (NEGATIVE) Urine Glucose (UA) 250 mg/dL (NEGATIVE) Urine Ketones 15 mg/dL (NEGATIVE) Urine Blood Negative (NEGATIVE) Urine Nitrite Negative (NEGATIVE) Urine Bilirubin Negative (NEGATIVE) Urine Urobilinogen 0.2 mg/dL (0.2-1.9) Urine Leukocyte Esterase Negative (NEGATIVE) Urine RBC None /HPF (0-2/HPF) Urine WBC 0-2 /HPF (0-5/HPF) Urine Squamous Epithelial Cells Rare /LPF (</=FEW) Urine Renal Epithelial Cells Few /LPF (NONE-FEW) Urine Bacteria Negative /HPF (NONE-FEW) Urine Mucus None /HPF (NONE-FEW) ED Course/Re-evaluation ED Course Medical decision making a 52-year-old female right upper quadrant pain ultrasound does show echogenic shadowing and some thickening around the gallbladder wall but no signs of cholangitis versus ascending cholangitis or cholecystitis patient does have cholelithiasis labs are are normal no sign of infectious etiology liver function normal will have her follow-up outpatient surgery for possible murmur nonemergent elective gallbladder removal Decision to Disposition Date: Oct 02, 2017 Decision to Disposition Time: 16:23 Depart Departure Latest Vital Signs Vital Signs Date Time Temp Pulse Resp B/P (MAP) Pulse Ox O2 Delivery O2 Flow Rate FiO2 10/02/17 15:39 2.0 10/02/17 15:07 98.0 95 14 147/105 92 Room Air Impression: Primary Impression: Gallbladder anomaly Condition: Improved Disposition: HOME OR SELF-CARE Referrals: AARON PATTERSON APRN (PCP) MARIIA MCLEOD MD 5 Days Patient Instructions: Gallstones (DC) JOB MENDOZA MD Oct 02, 2017 15:28
[2017-10-02 15:31] LABS: PLATELET COUNT, AUTOMATED 217 K/uL (150-450)
[2017-10-02 15:37] LABS: INR 0.98
--- NOTE | 2017-10-02 16:18 | RADIOLOGY IMAGING REPORT ---
FACILITY: [facility] PATIENT NAME: Divya Girard : 1965 MR: [id number] V: [id number] EXAM DATE: ORDERING PHYSICIAN: JOB MENDOZA TECHNOLOGIST: Location: [facility] Patient: Divya Girard : 1965 Visit/Account:[id number] Date of Sevice: 10/02/2017 Exam type: CHEST PA AND LAT History: Chest pain, right upper quadrant pain Comparison: September 05, 2017. Findings: The lungs are free of acute effusions, infiltrates or edema. There is no evidence of a pneumothorax or pneumomediastinum. The cardiac silhouette is normal in size. The trachea is in midline. There a re mild spondylotic changes of the thoracic spine. IMPRESSION: 1. No acute cardiopulmonary process is seen Report Dictated By: Eladia Salgado MD at 10/02/2017 4:14 PM Report E-Signed By: Eladia Salgado MD at 10/02/2017 4:15 PM WSN:MARY
[2017-10-02 16:29] VITALS: BP 123/85
--- NOTE | 2017-10-02 16:40 | RADIOLOGY IMAGING REPORT ---
FACILITY: [facility] [place] PATIENT NAME: Divya Girard : 1965 MR: [id number] V: [id number] EXAM DATE: ORDERING PHYSICIAN: JOB MENDOZA TECHNOLOGIST: Location: [facility] Patient: Divya Girard : 1965 Visit/Account:[id number] Date of Sevice: 10/02/2017 GALLBLADDER HISTORY: Right upper quadrant between four and a couple of weeks. More severe today COMPARISON: CT abdomen and pelvis September 05, 2017 FINDINGS: Gallbladder: The gallbladder appears contracted consistent with the history of a medial to hours prio r to the ultrasound and is therefore not well evaluated. Liver: There is diffuse increased echogenicity throughout the liver consistent with fatty infiltratio n or other infiltrative process. Liver also was not ideally imaged and by history was related to pat ient's body habitus. The liver did measure 24.7 cm in length on the CT from September 05, 2017. Common duct: Normal, 6.6 mm diameter. Pancreas: Obscured by bowel gas Right kidney: Limited views of the right kidney demonstrate no evidence of hydronephrosis. The right kidney measures 11.8 cm in length Upper abdominal aorta and IVC: Not visualized Ascites: None visualized. IMPRESSION: Very limited study as the patient apparently ate two hours prior to the ultrasound. The gallbladder was contracted therefore not well evaluated Diffuse fatty infiltration of the liver with hepatomegaly Report Dictated By: Eladia Salgado MD at 10/02/2017 4:29 PM Report E-Signed By: Eladia Salgado MD at 10/02/2017 4:35 PM WSN:MARY
== END 2017-10-02 16:33 | disposition home or self-care (01) ==
LOC: ER 15:15
DX: R93.2 Abnormal findings on diagnostic imaging of liver and biliary tract (principal)
CPT/HCPCS: 71046; 76705; 81001; 83690; 85025; 85610; 85730; 96361; 96374; 99284; G0480; J2405; J7030; 80320; 82040; 82247; 82310; 82374; 82435; 82565; 82947; 84075; 84132; 84155; 84295; 84450; 84460; 84520

== ENCOUNTER → 2017-10-07 | Outpatient (CLI) | payer MEDICARE, MEDICAID ==
[~2017-10-07] MED LIST changes: +PANT40TA65 PO; +PRED-1 PO; +SINCALIDE 5 MCG VIAL INJ ONE; +WATER FOR INJ,STERILE 20 ML 20 ML ONE
--- NOTE | 2017-10-07 12:23 | RADIOLOGY IMAGING REPORT ---
FACILITY: [facility] PATIENT NAME: Divya Girard : 1965 MR: [id number] V: [id number] EXAM DATE: ORDERING PHYSICIAN: MARIIA MCLEOD TECHNOLOGIST: Location: [facility] [place] Patient: Divya Girard : 1965 Visit/Account:[id number] Date of Sevice: 10/07/2017 GALLBLADDER W KINEVAC HISTORY: R upper quadrant pain COMPARISON: Gallbladder ultrasound October 02, 2017 FINDINGS: There is diffuse fatty infiltration of the liver. There is a 2.3 x 1 x 1.8 cm hypoechoic region in t he liver adjacent to the gallbladder which may represent an area of focal fatty infiltration. The gallbladder is partially contracted although there is no evidence of gallbladder wall thickening or demonstration of gallbladder stones. There was a positive Arguelles sign by technologist notation The gallbladder volume pre-Kinevac injection was 9.77 mL. The patient received 3.7 mL of CCK intrave nously. The patient experienced nausea following the injection and right upper quadrant pain eight o n a scale of 10. The maximum gallbladder contraction volume of 3.7 mL is equivalent to a gallbladder ejection fraction of 38% IMPRESSION: Gallbladder ejection fraction 38% Report Dictated By: Eladia Salgado MD at 10/07/2017 12:04 PM Report E-Signed By: Eladia Salgado MD at 10/07/2017 12:19 PM WSN:[email or web address]
== END ==
LOC: RAD 10:14
PROVIDERS: ATTEND Surgery
DX: K76.0 Fatty (change of) liver, not elsewhere classified (principal); R19.8 Other specified symptoms and signs involving the digestive system and abdomen; R11.0 Nausea
CPT/HCPCS: J2805

== ENCOUNTER → 2017-10-09 | Outpatient (CLI) | payer MEDICARE, MEDICAID ==
[~2017-10-09] MED LIST changes: -SINCALIDE 5 MCG VIAL INJ ONE; -WATER FOR INJ,STERILE 20 ML 20 ML ONE
[2017-10-09 15:48] LABS: PLATELET COUNT, AUTOMATED 239 K/uL (150-450)
--- NOTE | 2017-10-09 16:04 | EKG ---
FACILITY: [facility] PATIENT NAME: ROBIN HENDRICKSON : [id number] MR: [id number] V: [id number] EXAM DATE: ORDERING PHYSICIAN: MARIIA MCLEOD TECHNOLOGIST: RONALD Test Reason : PRE OP Blood Pressure : / mmHG Vent. Rate : 097 BPM Atrial Rate : 097 BPM P-R Int : 142 ms QRS Dur : 090 ms QT Int : 352 ms P-R-T Axes : 069 083 054 degrees QTc Int : 447 ms Normal sinus rhythm Nonspecific ST abnormality Abnormal ECG No previous ECGs available Confirmed by MARIIA NARAYANAN ([id number]) on 10/10/2017 6:34:20 AM Referred By: Confirmed By:MARIIA NARAYANAN
== END ==
LOC: LAB 14:56
PROVIDERS: ATTEND Surgery
DX: Z01.818 Encounter for other preprocedural examination (principal); R94.31 Abnormal electrocardiogram [ECG] [EKG]; J44.9 Chronic obstructive pulmonary disease, unspecified; Z83.3 Family history of diabetes mellitus
CPT/HCPCS: 36415; 82310; 82374; 82435; 82565; 82947; 83036; 84132; 84295; 84520; 85025

== ENCOUNTER 2017-10-24 00:53 | Day surgery (SDC) | payer MEDICARE, MEDICAID ==
[~2017-10-24] VITALS: Ht 154.9 cm; Wt 93.4 kg
[~2017-10-24 00:53] MED LIST changes: +AZIT-17 PO
[2017-10-24] MEDS ORDERED: FAMOTIDINE 20 MG TAB PO ONE (06:35)
[2017-10-24] MEDS ORDERED: MIDAZOLAM 2 MG/2 ML VIAL IVP PRN (06:45)
[2017-10-24] MEDS ORDERED: PREGABALIN 150 MG CAPSULE PO ONE (06:45)
[2017-10-24] MEDS ORDERED: LIDOCAINE/SOD BICARB 8.4% SYR ID ONE (06:45)
[2017-10-24] MEDS ORDERED: NORMOSOL R SOLN(*) 1000 ML BAG 1,000 ML IV PRN (06:45)
[2017-10-24] MEDS ORDERED: LEVOFLOXACIN/D5W*500 MG/100 ML 100 ML IVPB ONE (06:45)
[2017-10-24] MEDS ORDERED: INDOCYANINE GREEN 25 MG VIAL IVP ONE (06:45)
[2017-10-24] MEDS ORDERED: ACETAMINOPHEN 500 MG TAB PO ONE (06:45)
[2017-10-24 06:54] VITALS: BP 142/81
[2017-10-24] MEDS ORDERED: ROPIVACAINE 0.5% 20 ML VIAL ONE (07:13)
[2017-10-24] MEDS ORDERED: IOPAMIDOL 61% 100 ML INFUS BTL 0 ML ONE (07:13)
[2017-10-24] MEDS ORDERED: PROPOFOL EMUL(*) 10MG/ML 20 ML 20 ML ONE (07:27)
[2017-10-24] MEDS ORDERED: fentaNYL CITR 250 MCG/5 ML AMP ONE (07:27)
[2017-10-24] MEDS ORDERED: LIDOCAINE 2% IV 100 MG/5ML SYR ONE (07:27)
[2017-10-24] MEDS ORDERED: ONDANSETRON 4 MG/2 ML VIAL ONE ×2 (07:46→10:22)
[2017-10-24] MEDS ORDERED: KETAMINE HCL 200 MG/20 ML MDV ONE (08:09)
[2017-10-24] MEDS ORDERED: fentaNYL CITR 100 MCG/2 ML AMP ONE ×4 (08:42→10:56)
[2017-10-24] MEDS ORDERED: SUGAMMADEX SOD 200 MG/2 ML SDV ONE (08:46)
--- NOTE | 2017-10-24 09:58 | Short(Outpt) Discharge Summary ---
Discharge Summary Reason for Hosp/Final Diag: (1) Biliary colic Status: Chronic Hospital Course & Plan: Robotic cholecystectomy completed without problems. Departure Discharge to: Home, Self Care Discharge Instructions Home Meds Active Scripts Pantoprazole Sodium (PANTOPRAZOLE SODIUM) 40 Mg Tablet.dr, 1 TAB PO DAILY, #30 TAB 0 Refills Take 1 tablet every morning on an empty stomach and wait 30 minutes before eating. Prov:MARIIA MCLEOD MD 10/09/17 Reported Medications Azithromycin (Z-PACK) 250 Mg Tablet, 1 TAB PO QDAY, #6 DOSE-PACK 10/17/17 Bupropion Hcl (WELLBUTRIN SR) 150 Mg Tablet.er, 150 MG PO QDAY, TAB 08/12/17 Fluoxetine Hcl (PROZAC) 20 Mg Capsule, 60 MG PO QDAY, CAPSULE 08/12/17 Amitriptyline Hcl (AMITRIPTYLINE HCL) 50 Mg Tablet, 50 MG PO QHS, #5 TAB 08/12/17 Liraglutide (VICTOZA 2-BEST) 0.6 Mg/0.1 Ml Pen.injctr, 0.6 MG SQ DAILY 03/19/17 Discontinued Reported Medications Prednisone 10 Mg Tab (PREDNISONE 10 MG TAB) Unknown Strength Tablet, PO QDAY PRN for PRN, TAB 10/09/17 Follow up Referrals: General Surgery - 11/11/17 @ Surgery, General with MARIIA MCLEOD MD You have a follow up appointment scheduled with Dr. Mcleod on 11/11/17, at 2:00pm. Diet: Regular Activity: As Tolerated Special Instructions: You may remove the white surgical dressings on 10/26/17, then you can shower. After showering, leave the incisions open to air but leave the steristrips in place until they fall off on their own. Do not immerse the incisions for 2 weeks. MARIIA MCLEOD MD Oct 24, 2017 09:58
--- NOTE | 2017-10-24 10:14 | Post Operative Progress Note ---
Post Operative Progress Note Date: Oct 24, 2017 Time: 09:59 Surgeon: Luís Dictation number: [id number] Anesthesia: GETA by Dr. Douglas Pre-Op Diagnosis: Biliary colic Post-Op Diagnosis: THELMA Intraabdominal adhesion, small bowel to umbilicus Findings: Loop of small bowel adherent to umbilicus Procedure(s): Laparoscopic adhesiolysis/enterolysis Robotic cholecystectomy Specimen Removed:(May be N/A): GB and contents Complications: None Fluids: See anesthesia record Estimated Blood Loss: Minimal Date OP Note Dictated: Oct 24, 2017 Time OP Note Dictated: 10:00 MARIIA MCLEOD MD Oct 24, 2017 10:14
[2017-10-24] MEDS ORDERED: OXYC-854 PO (10:15)
[2017-10-24] MEDS ORDERED: DOCU-416 PO (10:15)
[2017-10-24] MEDS ORDERED: DEXAMETHASONE SOD 4 MG/ML VIAL ONE (10:18)
--- NOTE | 2017-10-24 11:40 | OPERATIVE REPORT 1 ---
EVENT DATE: October 24, 2017 SURGEON: Kory Staley M.D. ANESTHESIOLOGIST: Darin Douglas M.D. ANESTHESIA: General endotracheal. PREOPERATIVE DIAGNOSIS Biliary colic. POSTOPERATIVE DIAGNOSIS Biliary colic. PROCEDURE 1. Robotic cholecystectomy. 2. Adhesiolysis. COMPLICATIONS None. CONDITION Stable. ESTIMATED BLOOD LOSS Minimal. FINDINGS Patient had a loop of small bowel adherent to her umbilicus. When I got my first port in through the umbilicus through the open cut-down technique and then my 8 mm ports were put in, I put in a camera in the left upper quadrant port and looked at the umbilicus because I sensed there were adhesions there. There was a loop of small bowel, which I ended up having to take down but there were no signs of bowel injury. I did oversew a little serosal rent from the adhesiolysis. SPECIMEN Gallbladder and contents. INDICATIONS Patient is a 52-year-old female who presented to my office with postprandial right upper quadrant abdominal pain. She had no evidence of gallstones on ultrasound but her ejection fraction was slightly low at 39% and there was no other explanation for her symptoms. She is requesting to have her gallbladder removed. PROCEDURE The patient was brought into the operating room and placed supine on the operating table. General endotracheal anesthesia was administered and her abdomen was prepped and draped in the sterile fashion. A time-out was completed. I injected the infraumbilical skin with 0.5% ropivacaine plain. I made a curvilinear smiley face type incision in the infraumbilical rim and dissected through the dermis and into the subcutaneous fat. I identified the midline fascia, made a vertical incision in the midline fascia, grasped the fascia edges with González clamps and then retracted the fascia towards the ceiling. I then bluntly entered the peritoneal cavity with my finger. I did feel some adhesions in this area so I put the port in and insufflated the abdomen to a pressure of 50 mmHg. I inserted the camera and then placed an 8 mm robotic port in the right mid abdomen and two 8 mm robotic ports in the left abdomen, one in the left mid abdomen and one in the left upper quadrant. I then moved the camera over to the left upper quadrant port and inspected the entry site at the umbilicus and saw a loop of small bowel. I did not see any obvious injuries but then used laparoscopic scissors and took down adhesions and then used [place] clamp and pulled it through the umbilical wound externally to inspect it. I did see a little serosal injury/rent from the adhesiolysis and I oversewed this with interrupted 3-0 silk sutures. It otherwise looked very healthy so it was put back in the abdomen, the port replaced and the abdomen re- insufflated and the robot was brought in and docked. With the patient in reverse Trendelenburg and planed towards her left. I then inserted a caudia grasper in the right side of her abdomen and a hook in the third port and ProGrasp in the fourth port. The gallbladder was then retracted towards the patient's right shoulder and the infundibulum towards her right hip. I used the hook and divided the peritoneum overlying the infundibulum on both the medial and lateral aspects of the gallbladder and then identified the cystic artery first and this was cleaned off and clipped proximally and distally between clips. The duct was identified and using FireFly to help I made sure I was away from the common duct. I clipped the cystic duct with three clips distally and one clip at the infundibulum and cystic duct junction. I divided the duct between the clips and then divided the posterior attachments of the gallbladder, from the gallbladder fossa. The gallbladder was placed in a surgical retrieval bag and removed from the abdomen through the umbilical port site. I irrigated and dried the right upper quadrant and there were no bile leaks or bleeding. There was an area of far liver that I covered with Nena. I then removed all of the instruments, undocked the robot and removed all of the ports after desufflating the abdomen and closed the umbilical fascial defect with [id number] Vicryl sutures and tied all three of these down with good reapproximation of the fascial edges. The skin of each port site was closed with 4-0 Monocryl subcuticular suture. The skin was cleaned and dried and steri- strips applied followed by sterile surgical dressings. The patient was awakened and extubated in the operating room and transferred to the recovery room in stable condition, having tolerated the procedure without any apparent problems. FABBY
[2017-10-24 12:02] VITALS: BP 130/80
[2017-10-24 12:04] VITALS: BP 123/78
== END 2017-10-24 11:45 | disposition home or self-care (01) ==
LOC: OR 00:53
PROVIDERS: ATTEND Surgery
DX: K80.50 Calculus of bile duct without cholangitis or cholecystitis without obstruction (principal); K66.0 Peritoneal adhesions (postprocedural) (postinfection); J44.9 Chronic obstructive pulmonary disease, unspecified; E66.9 Obesity, unspecified; E11.9 Type 2 diabetes mellitus without complications; K21.9 Gastro-esophageal reflux disease without esophagitis; F41.8 Other specified anxiety disorders; G47.33 Obstructive sleep apnea (adult) (pediatric); Z99.81 Dependence on supplemental oxygen; Z68.38 Body mass index [BMI] 38.0-38.9, adult; Z90.710 Acquired absence of both cervix and uterus; Z87.891 Personal history of nicotine dependence
CPT/HCPCS: 36416; 47562; 82948; 88304; 94660; 94667; A9270; J1956; J2001; J2405; J2704; J2795; J3010; J3490; S2900; J1100; Q9967

== ENCOUNTER 2018-03-15 16:10 | Emergency (ER) | payer MEDICARE ==
[~2018-03-15 16:10] MED LIST changes: +DOCU-416 PO; -HYDR-4308 PO; -HYDR-4309 PO; +HYDR-653 PO; +HYDR-654 PO; +OXYC-854 PO
[2018-03-15 16:14] VITALS: BP 107/63
--- NOTE | 2018-03-15 16:18 | ER Report ---
History and Physical Time Seen By MD: 16:18 HPI/ROS CHIEF COMPLAINT: Back pain HISTORY OF PRESENT ILLNESS: This is a 53-year-old female presents to the emergency department for back pain. 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 No numbness or tingling. No nausea or vomiting. No loss of bowel or bladder, no urinary retention. No fevers or chills. No other concerning findings. No chest pain or shortness of breath. REVIEW OF SYSTEMS: Respiratory: No cough, no dyspnea. Cardiovascular: No chest pain, no palpitations. Gastrointestinal: No vomiting, no abdominal pain. Musculoskeletal: As above. Allergies: Coded Allergies: Penicillins (Verified Allergy, Unknown, ANAPHYLAXIS, 03/15/18) coconut (Verified Allergy, Unknown, 03/15/18) diphenhydramine (Verified Allergy, Unknown, 03/15/18) ketorolac (Verified Allergy, Unknown, 03/15/18) Home Meds Active Scripts Cyclobenzaprine Hcl (CYCLOBENZAPRINE HCL) 10 Mg Tablet, 5-10 MG PO TID PRN for MUSCLE SPASMS, #9 TAB Prov:BENITA PRAJAPATI DEVELOPMENTAL WRITING INSTRUCTOR-BC 03/15/18 Pantoprazole Sodium (PANTOPRAZOLE SODIUM) 40 Mg Tablet.dr, 1 TAB PO DAILY, #30 TAB 0 Refills Take 1 tablet every morning on an empty stomach and wait 30 minutes before eating. Prov:MARIIA MCLEOD MD 10/09/17 Reported Medications Melatonin (Melatonin) 5 Mg Tab.ir.er, TAB PO QHS 03/15/18 Fluoxetine Hcl (PROZAC) 20 Mg Capsule, 60 MG PO QDAY, CAPSULE 08/12/17 Amitriptyline Hcl (AMITRIPTYLINE HCL) 50 Mg Tablet, 50 MG PO QHS, #5 TAB 08/12/17 Liraglutide (VICTOZA 2-BEST) 0.6 Mg/0.1 Ml Pen.injctr, 0.6 MG SQ DAILY 03/19/17 Discontinued Reported Medications Azithromycin (Z-PACK) 250 Mg Tablet, 1 TAB PO QDAY, #6 DOSE-PACK 10/17/17 Bupropion Hcl (WELLBUTRIN SR) 150 Mg Tablet.er, 150 MG PO QDAY, TAB 08/12/17 Discontinued Scripts Docusate Sodium (COLACE) 100 Mg Capsule, 1 CAP PO BID, #30 CAP 0 Refills TAKE WITH A FULL GLASS OF WATER Prov:MARIIA MCLEOD MD 10/24/17 Oxycodone Hcl/Acet 5/325 Mg (ENDOCET 5-325 TABLET) 1 Each Tablet, 1 TAB PO Q4H PRN for PAIN, #30 TAB 0 Refills Prov:MARIIA MCLEOD MD 10/24/17 Past Medical/Surgical History The patient has a past medical and surgical history of tonsillectomy, wears glasses, headaches, COPD, pneumonia, sleep apnea, cyclical vomiting syndrome, gallbladder disease, appendectomy, cholecystectomy, tubal ligation, hysterectomy, back surgeries, L5-S1 fusion, type II diabetes, depression, anxiety, smokes cigarettes. Reviewed Nurses Notes: Yes Hx Smoking: Yes (1 PPD X 40 YRS) Smoking Status: Current: Every Day Smoker Hx Substance Use Disorder: No Hx Alcohol Use: No Constitutional Vital Sign - Last 24 Hours 03/15/18 16:14 Temp 97.5 Pulse 99 Resp 16 B/P (MAP) 107/63 Pulse Ox 93 O2 Delivery Room Air Physical Exam General Appearance: The patient is alert, has no immediate need for airway protection and no current signs of toxicity. Eyes: Pupils equal and round no injection. Respiratory: Chest is non tender, lungs are clear to auscultation. Cardiac: regular rate and rhythm. Gastrointestinal: Abdomen is soft and non tender, no masses, bowel sounds normal. Musculoskeletal: Neck: Neck is supple and non tender. Left lower back pain into the left buttock with palpation, no pain on the spinous process. No edema, no crepitus or deformities. Extremities have full range of motion and are non tender. Skin: No rashes or lesions. DIFFERENTIAL DIAGNOSIS: After history and physical exam differential diagnosis was considered for back pain including but not limited to muscular pain, herniated disc, spine fracture, intra-abdominal causes and urinary tract infection. Medical Decision Making EKG/Imaging Imaging Location: [facility] [place] Patient: Divya Girard : 1965 Visit/Account:[id number] Date of Sevice: 03/15/2018 Examination: L-SPINE >4 VIEWS Comparison: MRI 09/16/[address] 09/05/2017 History: back pain, injury yesterday Findings: L5-S1 posterior decompression and fusion. Surgical hardware is intact. Given differences in modality, postoperative alignment is unchanged since the CT. No vertebral body height loss or malalignment. Mild disc space loss at L4- L5. Facet alignment is maintained at all levels. Sacroiliac joint alignment is within normal limits. Aortic atherosclerosis. IMPRESSION: 1. L5-S1 posterior fusion and decompression. 2. No lumbar vertebral body height loss or malalignment. 3. L4-L5 mild degenerative disc disease. Report Dictated By: Coleman Tee MD at 03/15/2018 5:07 PM Report E-Signed By: Coleman Tee MD at 03/15/2018 5:10 PM WSN:[id number] ED Course/Re-evaluation ED Course The patient was admitted to a room. A history and physical were obtained. Differential diagnoses were considered. An x-ray of the lumbar spine was negative for any acute abnormalities. No changes in her hardware. I reviewed the results with the patient. I did tell her this is likely a strain in her lower back, I did recommend also relaxers, ibuprofen and Tylenol as needed for pain. I also recommended avoiding lifting, twisting or straining her lower back in anyway for the next several days. Patient was sent home with a prescription for Flexeril. Patient was in agreement with this plan of care, had no other questions or concerns at this time and discharged home. Decision to Disposition Date: Mar 15, 2018 Decision to Disposition Time: 17:34 Depart Departure Latest Vital Signs Vital Signs Date Time Temp Pulse Resp B/P (MAP) Pulse Ox O2 Delivery O2 Flow Rate FiO2 03/15/18 16:14 97.5 99 16 107/63 93 Room Air Impression: Primary Impression: Low back strain Condition: Improved Disposition: HOME OR SELF-CARE Referrals: MARIIA MCLEOD MD (PCP) KAMRAN MASSEY MD New Scripts Cyclobenzaprine Hcl (CYCLOBENZAPRINE HCL) 10 Mg Tablet 5-10 MG PO TID PRN for MUSCLE SPASMS, #9 TAB Prov: BENITA PRAJAPATI DEVELOPMENTAL WRITING INSTRUCTOR-BC 03/15/18 Patient Instructions: Back Pain (ED) Additional Instructions: Please take the flexeril as directed. Continue taking Ibuprofen or Tylenol as needed for pain. Please try to rest your back, be very careful about bending over and twisting motions. Get plenty of rest. Follow up with your PCP in 1 week for reevaluation. If the back pain continues, please follow up with Dr. Massey. Return to the ED for any other concerns or worsening symptoms. Problem Qualifiers Primary Impression: Low back strain Encounter type: initial encounter Qualified Codes: S39.012A - Strain of muscle, fascia and tendon of lower back, initial encounter BENITA PRAJAPATI-BC Mar 15, 2018 16:18
[2018-03-15] MEDS ORDERED: MELA5TAB21 PO (16:21)
--- NOTE | 2018-03-15 17:15 | RADIOLOGY IMAGING REPORT ---
[place] [facility] [place] Divya Girard : 1965 MR: [id number] V: [id number] EXAM DATE: ORDERING PHYSICIAN: BENITA PRAJAPATI TECHNOLOGIST: Location: [facility] [place] Patient: Divya Girard : 1965 Visit/Account:[id number] Date of Sevice: 03/15/2018 Examination: L-SPINE >4 VIEWS Comparison: MRI 09/16/[address] 09/05/2017 History: back pain, injury yesterday Findings: L5-S1 posterior decompression and fusion. Surgical hardware is intact. Given differences in modality, postoperative alignment is unchanged since the CT. No vertebral body height loss or malali gnment. Mild disc space loss at L4-L5. Facet alignment is maintained at all levels. Sacroiliac joint alignment is within normal limits. Aortic atherosclerosis. IMPRESSION: 1. L5-S1 posterior fusion and decompression. 2. No lumbar vertebral body height loss or malalignment. 3. L4-L5 mild degenerative disc disease. Report Dictated By: Coleman Tee MD at 03/15/2018 5:07 PM Report E-Signed By: Coleman Tee MD at 03/15/2018 5:10 PM WSN:[id number]
[2018-03-15] MEDS ORDERED: CYCL10TA29 PO (17:38)
== END 2018-03-15 17:45 | disposition home or self-care (01) ==
LOC: ER 16:14
DX: S39.012A Strain of muscle, fascia and tendon of lower back, initial encounter (principal)
CPT/HCPCS: 72120; 99283

== ENCOUNTER 2018-04-21 19:21 | Emergency (ER) | payer MEDICARE ==
[~2018-04-21 19:21] MED LIST changes: +MELA5TAB21 PO
[2018-04-21] MEDS ORDERED: CARI-1 PO (19:33)
--- NOTE | 2018-04-21 19:43 | ER Report ---
History and Physical Time Seen By MD: 19:38 Hx. of Stated Complaint: Patient states she started having a headache this morning which she states is related to high blood pressure. at 1900 her blood pressure was 188/112 HPI/ROS CHIEF COMPLAINT: Hypertension HISTORY OF PRESENT ILLNESS: This is a 53-year-old female presents to the emergency department with concerns of hypertension and a headache. Patient states that she's been checking her blood pressure more frequently over the last couple of weeks, she's noted her blood pressures have increased, she does not have a history of hypertension. She does have a history of type II diabetes, she states it's well controlled, she denies the worst headache of her life, she said that she's had migraines in the past that have been much worse. She is unsure if this is secondary to stress and she has a live-in caregiver. She denies fevers or chills. No visual changes. No chest pain or shortness of breath. No rashes. REVIEW OF SYSTEMS: Constitutional: No fever, no chills. Eyes: No discharge. ENT: No sore throat. Cardiovascular: As above. Respiratory: No cough, no shortness of breath. Gastrointestinal: No abdominal pain, no vomiting. Genitourinary: No hematuria. Musculoskeletal: No back pain. Skin: No rashes. Neurological: As above. Allergies: Coded Allergies: Penicillins (Verified Allergy, Unknown, ANAPHYLAXIS, 04/21/18) coconut (Verified Allergy, Unknown, 04/21/18) diphenhydramine (Verified Allergy, Unknown, 04/21/18) ketorolac (Verified Allergy, Unknown, 04/21/18) Home Meds Active Scripts Cyclobenzaprine Hcl (CYCLOBENZAPRINE HCL) 10 Mg Tablet, 5-10 MG PO TID PRN for MUSCLE SPASMS, #9 TAB Prov:BENITA PRAJAPATI SPORT INTERN-BC 03/15/18 Pantoprazole Sodium (PANTOPRAZOLE SODIUM) 40 Mg Tablet.dr, 1 TAB PO DAILY, #30 TAB 0 Refills Take 1 tablet every morning on an empty stomach and wait 30 minutes before eating. Prov:MARIIA MCLEOD MD 10/09/17 Reported Medications Carisoprodol (SOMA) 350 Mg Tablet, 350 MG PO TID PRN for MIGRAINE, TAB 04/21/18 Melatonin (Melatonin) 5 Mg Tab.ir.er, TAB PO QHS 03/15/18 Fluoxetine Hcl (PROZAC) 20 Mg Capsule, 60 MG PO QDAY, CAPSULE 08/12/17 Amitriptyline Hcl (AMITRIPTYLINE HCL) 50 Mg Tablet, 50 MG PO QHS, #5 TAB 08/12/17 Liraglutide (VICTOZA 2-BEST) 0.6 Mg/0.1 Ml Pen.injctr, 0.6 MG SQ DAILY 03/19/17 Past Medical/Surgical History The patient has a past medical and surgical history of headaches, pneumonia, COPD, cyclical vomiting syndrome, gallbladder disease, clicks cystectomy, chronic back pain, wears glasses, type II diabetes, appendectomy, cholecystectomy, hysterectomy, tubal ligation, L5-S1 fusion. Reviewed Nurses Notes: Yes Hx Smoking: Yes (1 PPD X 40 YRS) Smoking Status: Current: Every Day Smoker Hx Substance Use Disorder: No Hx Alcohol Use: No Constitutional Vital Sign - Last 24 Hours 04/21/18 04/21/18 04/21/18 04/21/18 19:25 19:26 19:30 19:51 Temp 99.0 Pulse 81 76 Resp 15 B/P (MAP) 144/114 144/114 (124) 150/110 (123) Pulse Ox 91 89 O2 Delivery Room Air 04/21/18 04/21/18 19:52 20:00 B/P (MAP) 145/99 (114) 153/97 (115) Physical Exam General Appearance: The patient is alert, has no immediate need for airway protection and no signs of toxicity. Eyes: Pupils equal and round no pallor or injection. ENT, Mouth: Mucous membranes are moist. Respiratory: There are no retractions, lungs are clear to auscultation. Cardiovascular: Regular rate and rhythm, no murmurs, clicks or rubs. Gastrointestinal: Abdomen is soft and non tender, no masses, bowel sounds normal. Neurological: Alert and oriented 4. Moving all extremities. Following all commands. No focal neuro deficits. Skin: Warm and dry, no rashes. Musculoskeletal: Neck is supple non tender. Extremities are nontender, nonswollen and have full range of motion. DIFFERENTIAL DIAGNOSIS: After history and physical exam differential diagnosis was considered for headache including but not limited to subarachnoid hemo rrhage, hypertension, migraine headache, tension headache and infectious causes such as meningitis, pharyngitis and sinusitis. Medical Decision Making Data Points Result Diagram: 04/21/18200904/21/182009 Laboratory Hematology Test 04/21/18 20:10 Red Blood Count 5.31 M/uL (4.17-5.56) Mean Corpuscular Volume 93.1 fL (80.0-96.0) Mean Corpuscular Hemoglobin 32.2 pg (26.0-33.0) Mean Corpuscular Hemoglobin Concent 34.5 g/dL (32.0-36.0) Red Cell Distribution Width 12.7 % (11.5-14.5) Mean Platelet Volume 9.5 fL (7.2-11.1) Neutrophils (%) (Auto) 57.8 % (39.4-72.5) Lymphocytes (%) (Auto) 30.3 % (17.6-49.6) Monocytes (%) (Auto) 7.0 % (4.1-12.4) Eosinophils (%) (Auto) 2.0 % (0.4-6.7) Basophils (%) (Auto) 2.9 % (0.3-1.4) Nucleated RBC Relative Count (auto) 0.1 /100WBC Neutrophils # (Auto) 4.4 K/uL (2.0-7.4) Lymphocytes # (Auto) 2.3 K/uL (1.3-3.6) Monocytes # (Auto) 0.5 K/uL (0.3-1.0) Eosinophils # (Auto) 0.1 K/uL (0.0-0.5) Basophils # (Auto) 0.2 K/uL (0.0-0.1) Nucleated RBC Absolute Count (auto) 0.01 K/uL Sodium Level 138 mmol/L (137-145) Potassium Level 3.8 mmol/L (3.5-5.0) Chloride Level 101 mmol/L (98-107) Carbon Dioxide Level 27 mmol/L (22-31) Blood Urea Nitrogen 11 mg/dl (7-18) Creatinine 0.60 mg/dl (0.52-1.04) Glomerular Filtration Rate Calc > 60.0 Random Glucose 136 mg/dl (75-110) Calcium Level 9.7 mg/dl (8.4-10.2) Total Bilirubin 0.2 mg/dl (0.2-1.3) Aspartate Amino Transf (AST/SGOT) 24 U/L (0-35) Alanine Aminotransferase (ALT/SGPT) 40 U/L (0-56) Alkaline Phosphatase 108 U/L (0-126) Total Protein 6.3 g/dl (6.3-8.2) Albumin 3.9 g/dl (3.5-5.0) Chemistry Test 04/21/18 20:10 White Blood Count 7.7 k/uL (4.5-11.0) Red Blood Count 5.31 M/uL (4.17-5.56) Hemoglobin 17.1 g/dL (12.0-16.0) Hematocrit 49.4 % (34.0-47.0) Mean Corpuscular Volume 93.1 fL (80.0-96.0) Mean Corpuscular Hemoglobin 32.2 pg (26.0-33.0) Mean Corpuscular Hemoglobin Concent 34.5 g/dL (32.0-36.0) Red Cell Distribution Width 12.7 % (11.5-14.5) Platelet Count 227 K/uL (150-450) Mean Platelet Volume 9.5 fL (7.2-11.1) Neutrophils (%) (Auto) 57.8 % (39.4-72.5) Lymphocytes (%) (Auto) 30.3 % (17.6-49.6) Monocytes (%) (Auto) 7.0 % (4.1-12.4) Eosinophils (%) (Auto) 2.0 % (0.4-6.7) Basophils (%) (Auto) 2.9 % (0.3-1.4) Nucleated RBC Relative Count (auto) 0.1 /100WBC Neutrophils # (Auto) 4.4 K/uL (2.0-7.4) Lymphocytes # (Auto) 2.3 K/uL (1.3-3.6) Monocytes # (Auto) 0.5 K/uL (0.3-1.0) Eosinophils # (Auto) 0.1 K/uL (0.0-0.5) Basophils # (Auto) 0.2 K/uL (0.0-0.1) Nucleated RBC Absolute Count (auto) 0.01 K/uL Glomerular Filtration Rate Calc > 60.0 Calcium Level 9.7 mg/dl (8.4-10.2) Total Bilirubin 0.2 mg/dl (0.2-1.3) Aspartate Amino Transf (AST/SGOT) 24 U/L (0-35) Alanine Aminotransferase (ALT/SGPT) 40 U/L (0-56) Alkaline Phosphatase 108 U/L (0-126) Total Protein 6.3 g/dl (6.3-8.2) Albumin 3.9 g/dl (3.5-5.0) EKG/Imaging EKG Interpretation 12 lead EKG: Time of EKG 1948. Rhythm: Normal sinus rhythm, ventricular rate 73 bpm. [place]: normal QRS: normal ST segments: No ST depression or elevation identified, poor T-wave progression in V1 through V6, flattened. ED Course/Re-evaluation ED Course The patient was admitted to a room. A history and physical were obtained. Differential diagnoses were considered. After a lengthy discussion with patient, we elected to proceed with basic blood work, CT CBC, CMP and EKG. Laboratory studies unremarkable, and blood pressure trended down while in the emergency department last blood pressure 108/93. I reviewed the results with the patient, I did tell her that there is no need to treat her blood pressure at this time I did however recommend following up with her primary care provider for reevaluation and to formulate a long-term plan for concerns of hypertension. She expressed understanding, was agreeable with this plan of care and discharged home. EKG showing a normal sinus rhythm. Decision to Disposition Date: Apr 21, 2018 Decision to Disposition Time: 21:20 Depart Departure Latest Vital Signs Vital Signs Date Time Temp Pulse Resp B/P (MAP) Pulse Ox O2 Delivery O2 Flow Rate FiO2 04/21/18 20:00 153/97 (115) 04/21/18 19:51 76 89 04/21/18 19:25 99.0 15 Room Air Impression: Primary Impression: Elevated blood pressure reading without diagnosis of hypertension Condition: Improved Disposition: HOME OR SELF-CARE Referrals: MARIIA MCLEOD MD (PCP) AARON PATTERSON APRN 5 Days Patient Instructions: Hypertension (ED) Additional Instructions: Your lab studies look good, your blood pressure did go down on it's own. I want you to follow up with your primary care provider this week for reevaluation and discussion on how to treat your blood pressure. Be sure to eat a well rounded diet. Drink plenty of water. Increase your physical activity. Return to the ED for any other concerns or worsening symptoms. BENITA PRAJAPATI SPORT INTERN-BC Apr 21, 2018 19:43
[2018-04-21 20:00] VITALS: BP 153/97
--- NOTE | 2018-04-21 20:38 | EKG ---
[place] [facility] [place] NAME: ROBIN HENDRICKSON : [id number] MR: [id number] V: [id number] EXAM DATE: ORDERING PHYSICIAN: BENITA PRAJAPATI TECHNOLOGIST: RAMIRO Test Reason : CARDIAC Blood Pressure : / mmHG Vent. Rate : 073 BPM Atrial Rate : 073 BPM P-R Int : 154 ms QRS Dur : 086 ms QT Int : 394 ms P-R-T Axes : 018 077 066 degrees QTc Int : 434 ms Normal sinus rhythm Nonspecific T wave abnormality Abnormal ECG When compared with ECG of 09-OCT-2017 14:02, Nonspecific T wave abnormality now evident in Anterolateral leads Confirmed by MARIIA NARAYANAN ([id number]) on 04/21/2018 10:16:27 PM Referred By: Confirmed By:MARIIA NARAYANAN
[2018-04-21 20:39] LABS: PLATELET COUNT, AUTOMATED 227 K/uL (150-450)
== END 2018-04-21 21:25 | disposition home or self-care (01) ==
LOC: ER 19:57
DX: R03.0 Elevated blood-pressure reading, without diagnosis of hypertension (principal); J44.9 Chronic obstructive pulmonary disease, unspecified
CPT/HCPCS: 82040; 82247; 82310; 82374; 82435; 82565; 82947; 84075; 84132; 84155; 84295; 84450; 84460; 84520; 85025; 93005; 99283

== ENCOUNTER 2018-04-25 03:51 | Emergency (ER) | payer MEDICARE ==
[~2018-04-25 03:51] MED LIST changes: +CARI-1 PO
--- NOTE | 2018-04-25 04:11 | ER Report ---
History and Physical Time Seen By MD: 04:08 Hx. of Stated Complaint: patient states that on 04/24/18 around 1200; patient was walking out of an door way when she tripped and fell onto an step; patient landed on her left side and states that she might have broken ribs; pt states that she has a hard time taking a deep breath. HPI/ROS CHIEF COMPLAINT: Left-sided rib pain HISTORY OF PRESENT ILLNESS: Patient is a 53-year-old female here with complaints of left-sided rib pain after a fall yesterday at approximately 12:00. Patient reports having pain especially with deep inspiration, tenderness on palpation of the left lateral rib cage. Patient came in because she was concerned that she may have fractured some ribs. Patient does admit to smoking history. Denies abdominal pain, nausea, vomiting, fevers or chills. REVIEW OF SYSTEMS: Constitutional: No fever, no chills. Eyes: No discharge. ENT: No sore throat. Cardiovascular: + Left sided chest wall pain, no palpitations. Respiratory: No cough, + mild shortness of breath. Gastrointestinal: No abdominal pain, no vomiting. Genitourinary: No hematuria. Musculoskeletal: No back pain. Skin: No rashes. Neurological: No headache. Allergies: Coded Allergies: Penicillins (Verified Allergy, Unknown, ANAPHYLAXIS, 04/25/18) coconut (Verified Allergy, Unknown, 04/25/18) diphenhydramine (Verified Allergy, Unknown, 04/25/18) ketorolac (Verified Allergy, Unknown, 04/25/18) Home Meds Active Scripts Tramadol Hcl (TRAMADOL HCL) 50 Mg Tablet, 50 MG PO Q6H PRN for PAIN, #10 TAB 0 Refills Prov:ALEJANDRA LONDONO DO 04/25/18 Cyclobenzaprine Hcl (CYCLOBENZAPRINE HCL) 10 Mg Tablet, 5-10 MG PO TID PRN for MUSCLE SPASMS, #9 TAB Prov:BENITA PRAJAPATI PLANT MAINTENANCE ENGINEER-BC 03/15/18 Pantoprazole Sodium (PANTOPRAZOLE SODIUM) 40 Mg Tablet.dr, 1 TAB PO DAILY, #30 TAB 0 Refills Take 1 tablet every morning on an empty stomach and wait 30 minutes before eating. Prov:MARIIA MCLEOD MD 10/09/17 Reported Medications Carisoprodol (SOMA) 350 Mg Tablet, 350 MG PO TID PRN for MIGRAINE, TAB 04/21/18 Melatonin (Melatonin) 5 Mg Tab.ir.er, TAB PO QHS 03/15/18 Fluoxetine Hcl (PROZAC) 20 Mg Capsule, 60 MG PO QDAY, CAPSULE 08/12/17 Amitriptyline Hcl (AMITRIPTYLINE HCL) 50 Mg Tablet, 50 MG PO QHS, #5 TAB 08/12/17 Liraglutide (VICTOZA 2-BEST) 0.6 Mg/0.1 Ml Pen.injctr, 0.6 MG SQ DAILY 03/19/17 Hx Smoking: Yes (1 PPD X 40 YRS) Smoking Status: Current: Every Day Smoker Hx Substance Use Disorder: No Hx Alcohol Use: No Constitutional Vital Sign - Last 24 Hours 04/25/18 04/25/18 04/25/18 04/25/18 03:55 03:56 04:00 04:21 Temp 98.2 Pulse 77 Resp 17 B/P (MAP) 145/91 (109) 145/91 126/93 (104) Pulse Ox 91 90 O2 Delivery Room Air 04/25/18 04/25/18 04:51 05:00 Pulse 70 B/P (MAP) 130/113 (119) Pulse Ox 87 Physical Exam General Appearance: The patient is alert, has no immediate need for airway protection and no signs of toxicity. Mild distress secondary to pain Eyes: Pupils equal and round no pallor or injection. ENT, Mouth: Mucous membranes are moist. Respiratory: There are no retractions, lungs are clear to auscultation.+ Left sided chest wall pain with palpation of the lateral midaxillary line Cardiovascular: Regular rate and rhythm. Gastrointestinal: Abdomen is soft and non tender, no masses, bowel sounds normal. Neurological: No focal neurological findings Skin: Warm and dry, no rashes. Musculoskeletal: Neck is supple non tender. Extremities are nontender, nonswollen and have full range of motion. DIFFERENTIAL DIAGNOSIS: After history and physical exam differential diagnosis was considered for rib fractures, contusion, musculoskeletal strain, pneumot horax, pneumonia Medical Decision Making EKG/Imaging Imaging Location: [facility] Patient: Divya Girard : 1965 Visit/Account:[id number] Date of Sevice: 04/25/2018 CHEST PA LAT, RIBS LEFT HISTORY: Fall with anterior left lower rib pain. COMPARISON: 10/02/2017 and studies dating to 04/24/2017. TECHNIQUE: PA and lateral views of the chest. Detail views left ribs. FINDINGS: Pulmonary/pleura: Lungs are clear. There is no pneumothorax or pleural effusion. Cardiomediastinal: Cardiac and mediastinal silhouettes are within normal limits. Bones/soft tissues: There are healed fractures of the right lateral fifth and eighth ribs and of the left lateral fifth and anterior left sixth and seventh ribs. The eighth lateral right rib fracture is new compared to prior study, but the others are were present on the prior study. No acute rib fracture. There is stable mild degenerative change of the spine. The visible abdomen is normal. IMPRESSION: 1. No acute cardiopulmonary process. 2. Healed bilateral rib fractures. No apparent acute fracture. Location: [facility] Patient: Divya Girard : 1965 Visit/Account:[id number] Date of [facility]: 04/25/2018 CHEST PA LAT, RIBS LEFT HISTORY: Fall with anterior left lower rib pain. COMPARISON: 10/02/2017 and studies dating to 04/24/2017. TECHNIQUE: PA and lateral views of the chest. Detail views left ribs. FINDINGS: Pulmonary/pleura: Lungs are clear. There is no pneumothorax or pleural effusion. Cardiomediastinal: Cardiac and mediastinal silhouettes are within normal limits. Bones/soft tissues: There are healed fractures of the right lateral fifth and eighth ribs and of the left lateral fifth and anterior left sixth and seventh ribs. The eighth lateral right rib fracture is new compared to prior study, but the others are were present on the prior study. No acute rib fracture. There is stable mild degenerative change of the spine. The visible abdomen is normal. IMPRESSION: 1. No acute cardiopulmonary process. 2. Healed bilateral rib fractures. No apparent acute fracture. ED Course/Re-evaluation ED Course Patient is a 53-year-old female who fell yesterday around noon here with complaints of left-sided rib pain. 5% lidocaine patch was applied for topical analgesia. Chest x-ray and rib x-ray showed no acute fractures. Recommend close PCP follow-up. Return precautions provided. Patient was hemodynamically stable at time of discharge. Incentive spirometer given for pulmonary hygiene. Decision to Disposition Date: Apr 25, 2018 Decision to Disposition Time: 04:57 Depart Departure Latest Vital Signs Vital Signs Date Time Temp Pulse Resp B/P (MAP) Pulse Ox O2 Delivery O2 Flow Rate FiO2 04/25/18 05:00 130/113 (119) 04/25/18 04:51 70 87 04/25/18 03:56 98.2 17 Room Air Impression: Primary Impression: Contusion of rib on left side Condition: Improved Disposition: HOME OR SELF-CARE New Scripts Tramadol Hcl (TRAMADOL HCL) 50 Mg Tablet 50 MG PO Q6H PRN for PAIN, #10 TAB 0 Refills Prov: ALEJANDRA LONDONO DO 04/25/18 Patient Instructions: Contusion in Adults (ED) Additional Instructions: Please use your incentive spirometer. Please follow-up with your family doctor in the next 24-48 hours. You may take 1 tramadol every 6-8 hours as needed for pain control. Please return promptly if you develop worsening pain, increased shortness breath, fevers, chills, productive cough. ALEJANDRA LONDONO DO Apr 25, 2018 04:11
--- NOTE | 2018-04-25 04:54 | RADIOLOGY IMAGING REPORT ---
FACILITY: [facility] [place] PATIENT NAME: Divya Girard : 1965 MR: [id number] V: [id number] EXAM DATE: ORDERING PHYSICIAN: ALEJANDRA LONDONO TECHNOLOGIST: Location: [facility] Patient: Divya Girard : 1965 Visit/Account:[id number] Date of Sevice: 04/25/2018 CHEST PA LAT, RIBS LEFT HISTORY: Fall with anterior left lower rib pain. COMPARISON: 10/02/2017 and studies dating to 04/24/2017. TECHNIQUE: PA and lateral views of the chest. Detail views left ribs. FINDINGS: Pulmonary/pleura: Lungs are clear. There is no pneumothorax or pleural effusion. Cardiomediastinal: Cardiac and mediastinal silhouettes are within normal limits. Bones/soft tissues: There are healed fractures of the right lateral fifth and eighth ribs and of the left lateral fifth and anterior left sixth and seventh ribs. The eighth lateral right rib fracture is new compared to prior study, but the others are were present on the prior study. No acute rib fractu re. There is stable mild degenerative change of the spine. The visible abdomen is normal. IMPRESSION: 1. No acute cardiopulmonary process. 2. Healed bilateral rib fractures. No apparent acute fracture. Report Dictated By: Radha Santos at 04/25/2018 4:45 AM Report E-Signed By: Radha Santos at 04/25/2018 4:50 AM WSN:[id number]
--- NOTE | 2018-04-25 04:55 | RADIOLOGY IMAGING REPORT ---
FACILITY: [facility] PATIENT NAME: Divya Girard : 1965 MR: [id number] V: [id number] EXAM DATE: ORDERING PHYSICIAN: ALEJANDRA LONDONO TECHNOLOGIST: Location: [facility] Patient: Divya Girard : 1965 Visit/Account:[id number] Date of Sevice: 04/25/2018 CHEST PA LAT, RIBS LEFT HISTORY: Fall with anterior left lower rib pain. COMPARISON: 10/02/2017 and studies dating to 04/24/2017. TECHNIQUE: PA and lateral views of the chest. Detail views left ribs. FINDINGS: Pulmonary/pleura: Lungs are clear. There is no pneumothorax or pleural effusion. Cardiomediastinal: Cardiac and mediastinal silhouettes are within normal limits. Bones/soft tissues: There are healed fractures of the right lateral fifth and eighth ribs and of the left lateral fifth and anterior left sixth and seventh ribs. The eighth lateral right rib fracture is new compared to prior study, but the others are were present on the prior study. No acute rib fractu re. There is stable mild degenerative change of the spine. The visible abdomen is normal. IMPRESSION: 1. No acute cardiopulmonary process. 2. Healed bilateral rib fractures. No apparent acute fracture. Report Dictated By: Radha Santos at 04/25/2018 4:45 AM Report E-Signed By: Radha Santos at 04/25/2018 4:50 AM WSN:[id number]
[2018-04-25] MEDS ORDERED: TRAM-420 PO (05:06)
[2018-04-25 05:30] VITALS: BP 116/88
[2018-04-25] MEDS ORDERED: LIDOCAINE 5% PATCH TP SCH (09:00)
== END 2018-04-25 05:50 | disposition home or self-care (01) ==
LOC: ER 04:28
DX: S20.219A Contusion of unspecified front wall of thorax, initial encounter (principal)
CPT/HCPCS: 71046; 71100; 99284

== ENCOUNTER 2018-08-16 15:49 | Emergency (ER) | payer MEDICARE ==
[~2018-08-16 15:49] MED LIST changes: +TRAM-420 PO
[2018-08-16] MEDS ORDERED: DIPHENOX/ATROPINE 2.5-0.025MG PO ONE (16:15)
[2018-08-16] MEDS ORDERED: fentaNYL CITR 100 MCG/2 ML AMP IVP ONE (16:15)
[2018-08-16] MEDS ORDERED: ONDANSETRON 4 MG/2 ML VIAL IVP ONE (16:15)
[2018-08-16] MEDS ORDERED: NS(*) 0.9% 1000 ML BAG 1,000 ML IV ONE (16:15)
--- NOTE | 2018-08-16 16:15 | ER Report ---
History and Physical Time Seen By MD: 16:07 Hx. of Stated Complaint: presents with nausea and lower abd pain that began yesterday am HPI/ROS CHIEF COMPLAINT: Abdominal pain nausea and diarrhea HISTORY OF PRESENT ILLNESS: Patient is a 53-year-old female with approximately 24 hours of lower bilateral quadrant abdominal pain associated with nausea but no vomiting. She reports diarrhea that is nonbloody no mucus. No recent travel history no recent antibiotics. No fevers or chills. REVIEW OF SYSTEMS: Constitutional: No fever, no chills. Eyes: No discharge. ENT: No sore throat. Cardiovascular: No chest pain, no palpitations. Respiratory: No cough, no shortness of breath. Gastrointestinal: Abdominal pain nausea without vomiting, diarrhea Genitourinary: No hematuria. Musculoskeletal: No back pain. Skin: No rashes. Neurological: No headache. Allergies: Coded Allergies: prochlorperazine (Verified Allergy, Mild, 08/16/18) Penicillins (Verified Allergy, Unknown, ANAPHYLAXIS, 04/25/18) coconut (Verified Allergy, Unknown, 04/25/18) diphenhydramine (Verified Allergy, Unknown, 04/25/18) ketorolac (Verified Allergy, Unknown, 04/25/18) Home Meds Active Scripts Diphenoxylate Hcl/Atropine (LOMOTIL TABLET) 1 Each Tablet, 1 EACH PO Q4H for diarrhea, #16 TAB 0 Refills Prov:RUDI CALIXTO MD 08/16/18 Hydrocodone Bit/Acetaminophen (HYDROCODON-ACETAMINOPHEN 5-325) 1 Each Tablet, 1 EACH PO Q6H PRN for PAIN, #8 TAB 0 Refills Prov:RUDI CALIXTO MD 08/16/18 Ciprofloxacin Hcl 500 Mg Tab (CIPRO 500 MG TAB) 500 Mg Tablet, 500 MG PO BID, #14 TAB 0 Refills Prov:RUDI CALIXTO MD 08/16/18 Metronidazole (FLAGYL) 500 Mg Tablet, 500 MG PO BID for 7 Days, #14 TAB 0 Refills Prov:RUDI CALIXTO MD 08/16/18 Promethazine Hcl (PROMETHAZINE HCL) 25 Mg Tablet, 25 MG PO Q8H for Nausea, #30 TAB 0 Refills Prov:RUDI CALIXTO MD 08/16/18 Reported Medications Carisoprodol (SOMA) 350 Mg Tablet, 350 MG PO TID PRN for MIGRAINE, TAB 04/21/18 Melatonin (Melatonin) 5 Mg Tab.ir.er, TAB PO QHS 03/15/18 Fluoxetine Hcl (PROZAC) 20 Mg Capsule, 60 MG PO QDAY, CAPSULE 08/12/17 Liraglutide (VICTOZA 2-BEST) 0.6 Mg/0.1 Ml Pen.injctr, 0.6 MG SQ DAILY 03/19/17 Discontinued Reported Medications Amitriptyline Hcl (AMITRIPTYLINE HCL) 50 Mg Tablet, 50 MG PO QHS, #5 TAB 08/12/17 Discontinued Scripts Tramadol Hcl (TRAMADOL HCL) 50 Mg Tablet, 50 MG PO Q6H PRN for PAIN, #10 TAB 0 Refills Prov:ALEJANDRA LONDONO DO 04/25/18 Cyclobenzaprine Hcl (CYCLOBENZAPRINE HCL) 10 Mg Tablet, 5-10 MG PO TID PRN for MUSCLE SPASMS, #9 TAB Prov:BENITA PRAJAPATI CELLULAR PHONE REPAIRER-BC 03/15/18 Pantoprazole Sodium (PANTOPRAZOLE SODIUM) 40 Mg Tablet.dr, 1 TAB PO DAILY, #30 TAB 0 Refills Take 1 tablet every morning on an empty stomach and wait 30 minutes before eating. Prov:MARIIA MCLEOD MD 10/09/17 Past Medical/Surgical History Noncontributory Hx Smoking: Yes (1 PPD X 40 YRS) Smoking Status: Current: Every Day Smoker Hx Substance Use Disorder: No Hx Alcohol Use: No Constitutional Vital Sign - Last 24 Hours 08/16/18 08/16/18 08/16/18 08/16/18 15:54 16:00 16:03 16:47 Temp 97.6 Pulse 90 Resp 18 B/P (MAP) 153/102 (119) 135/100 (112) 135/92 Pulse Ox 92 O2 Delivery Room Air O2 Flow Rate 4.0 08/16/18 08/16/18 08/16/18 08/16/18 17:13 17:19 17:30 17:35 Pulse 83 80 B/P (MAP) 123/83 (96) 126/109 (115) Pulse Ox 94 97 08/16/18 08/16/18 08/16/18 08/16/18 18:00 18:05 18:35 18:36 Pulse 82 90 B/P (MAP) 133/121 (125) 116/80 (92) Pulse Ox 98 91 08/16/18 18:41 Pulse 86 Pulse Ox 91 Intake and Output 08/16/18 08/16/18 08/17/18 15:02 23:02 07:02 Intake Total 1000 ml Balance 1000 ml Physical Exam General/Constitutional: Patient is awake, alert, nontoxic and in no acute respiratory distress. Head: Normocephalic and atraumatic. Eyes: Conjunctival clear, Pupils are equal and reactive to light. Extraocular muscles are intact and symmetrical. Sclera are clear and anicteric. Ears:External canals are clear. Tympanic membranes are clear with normal landmarks and light reflex. Nares: No rhinorrhea or bleeding. Turbinates are pink and moist. Oropharyngeal: Mucous membranes are moist. There is no pharyngeal erythema or exudate. There are no palatal petechiae. Uvula is midline and symmetrical. Neck: Supple, no adenopathy. Cardiovascular: Heart is regular rate and rhythm without audible murmurs, rubs or gallops. Pulmonary: Lungs are clear to auscultation bilaterally. There are no wheezes, rales, or rhonchi. Chest rise is symmetrical Abdomen: Abdomen is protuberant with bilateral lower quadrant abdominal pain reproducible on exam normal bowel sounds no obvious guarding or peritoneal signs Extremities: No gross deformities, No peripheral cyanosis. Able to move all 4 extremities. Neuro: Alert and oriented X3, l. Patient has normal gait. Skin: No rashes, skin is warm dry and well perfused. Medical Decision Making Data Points Result Diagram: 08/16/18 1617 08/16/18 1617 Laboratory Hematology Test 08/16/18 16:17 08/16/18 16:22 Red Blood Count 5.33 M/uL (4.17-5.56) Mean Corpuscular Volume 92.9 fL (80.0-96.0) Mean Corpuscular Hemoglobin 32.4 pg (26.0-33.0) Mean Corpuscular Hemoglobin Concent 34.8 g/dL (32.0-36.0) Red Cell Distribution Width 13.4 % (11.5-14.5) Mean Platelet Volume 9.3 fL (7.2-11.1) Neutrophils (%) (Auto) 73.5 % (39.4-72.5) Lymphocytes (%) (Auto) 18.1 % (17.6-49.6) Monocytes (%) (Auto) 6.9 % (4.1-12.4) Eosinophils (%) (Auto) 0.9 % (0.4-6.7) Basophils (%) (Auto) 0.6 % (0.3-1.4) Nucleated RBC Relative Count (auto) 0.1 /100WBC Neutrophils # (Auto) 7.2 K/uL (2.0-7.4) Lymphocytes # (Auto) 1.8 K/uL (1.3-3.6) Monocytes # (Auto) 0.7 K/uL (0.3-1.0) Eosinophils # (Auto) 0.1 K/uL (0.0-0.5) Basophils # (Auto) 0.1 K/uL (0.0-0.1) Nucleated RBC Absolute Count (auto) 0.00 K/uL Sodium Level 140 mmol/L (137-145) Potassium Level 2.9 mmol/L (3.5-5.0) Chloride Level 102 mmol/L (98-107) Carbon Dioxide Level 21 mmol/L (22-31) Blood Urea Nitrogen 8 mg/dl (7-18) Creatinine 0.70 mg/dl (0.52-1.04) Glomerular Filtration Rate Calc > 60.0 Random Glucose 194 mg/dl (75-110) Calcium Level 9.7 mg/dl (8.4-10.2) Total Bilirubin 0.8 mg/dl (0.2-1.3) Aspartate Amino Transf (AST/SGOT) 48 U/L (0-35) Alanine Aminotransferase (ALT/SGPT) 63 U/L (0-56) Alkaline Phosphatase 115 U/L (0-126) Total Protein 7.4 g/dl (6.3-8.2) Albumin 4.5 g/dl (3.5-5.0) Lipase 31 U/L (23-300) Urine Color Martha Urine Clarity Cloudy Urine pH 5.0 pH (4.8-9.5) Urine Specific Ranson 1.020 Urine Protein Negative mg/dL (NEGATIVE) Urine Glucose (UA) Negative mg/dL (NEGATIVE) Urine Ketones Trace mg/dL (NEGATIVE) Urine Blood Negative (NEGATIVE) Urine Nitrite Negative (NEGATIVE) Urine Bilirubin Negative (NEGATIVE) Urine Urobilinogen Negative mg/dL (0.2-1.9) Urine Leukocyte Esterase Negative (NEGATIVE) Urine RBC 3 /HPF (0-2/HPF) Urine WBC 3 /HPF (0-5/HPF) Urine Squamous Epithelial Cells Many /LPF (</=FEW) Urine Bacteria Few /HPF (NONE-FEW) Urine Hyaline Casts Few /LPF (NONE-FEW) Urine Mucus Few /HPF (NONE-FEW) Chemistry Test 08/16/18 16:17 08/16/18 16:22 White Blood Count 9.9 k/uL (4.5-11.0) Red Blood Count 5.33 M/uL (4.17-5.56) Hemoglobin 17.2 g/dL (12.0-16.0) Hematocrit 49.5 % (34.0-47.0) Mean Corpuscular Volume 92.9 fL (80.0-96.0) Mean Corpuscular Hemoglobin 32.4 pg (26.0-33.0) Mean Corpuscular Hemoglobin Concent 34.8 g/dL (32.0-36.0) Red Cell Distribution Width 13.4 % (11.5-14.5) Platelet Count 226 K/uL (150-450) Mean Platelet Volume 9.3 fL (7.2-11.1) Neutrophils (%) (Auto) 73.5 % (39.4-72.5) Lymphocytes (%) (Auto) 18.1 % (17.6-49.6) Monocytes (%) (Auto) 6.9 % (4.1-12.4) Eosinophils (%) (Auto) 0.9 % (0.4-6.7) Basophils (%) (Auto) 0.6 % (0.3-1.4) Nucleated RBC Relative Count (auto) 0.1 /100WBC Neutrophils # (Auto) 7.2 K/uL (2.0-7.4) Lymphocytes # (Auto) 1.8 K/uL (1.3-3.6) Monocytes # (Auto) 0.7 K/uL (0.3-1.0) Eosinophils # (Auto) 0.1 K/uL (0.0-0.5) Basophils # (Auto) 0.1 K/uL (0.0-0.1) Nucleated RBC Absolute Count (auto) 0.00 K/uL Glomerular Filtration Rate Calc > 60.0 Calcium Level 9.7 mg/dl (8.4-10.2) Total Bilirubin 0.8 mg/dl (0.2-1.3) Aspartate Amino Transf (AST/SGOT) 48 U/L (0-35) Alanine Aminotransferase (ALT/SGPT) 63 U/L (0-56) Alkaline Phosphatase 115 U/L (0-126) Total Protein 7.4 g/dl (6.3-8.2) Albumin 4.5 g/dl (3.5-5.0) Lipase 31 U/L (23-300) Urine Color Martha Urine Clarity Cloudy Urine pH 5.0 pH (4.8-9.5) Urine Specific Ranson 1.020 Urine Protein Negative mg/dL (NEGATIVE) Urine Glucose (UA) Negative mg/dL (NEGATIVE) Urine Ketones Trace mg/dL (NEGATIVE) Urine Blood Negative (NEGATIVE) Urine Nitrite Negative (NEGATIVE) Urine Bilirubin Negative (NEGATIVE) Urine Urobilinogen Negative mg/dL (0.2-1.9) Urine Leukocyte Esterase Negative (NEGATIVE) Urine RBC 3 /HPF (0-2/HPF) Urine WBC 3 /HPF (0-5/HPF) Urine Squamous Epithelial Cells Many /LPF (</=FEW) Urine Bacteria Few /HPF (NONE-FEW) Urine Hyaline Casts Few /LPF (NONE-FEW) Urine Mucus Few /HPF (NONE-FEW) Urinalysis Test 08/16/18 16:22 Urine Color Martha Urine Clarity Cloudy Urine pH 5.0 pH (4.8-9.5) Urine Specific Ranson 1.020 Urine Protein Negative mg/dL (NEGATIVE) Urine Glucose (UA) Negative mg/dL (NEGATIVE) Urine Ketones Trace mg/dL (NEGATIVE) Urine Blood Negative (NEGATIVE) Urine Nitrite Negative (NEGATIVE) Urine Bilirubin Negative (NEGATIVE) Urine Urobilinogen Negative mg/dL (0.2-1.9) Urine Leukocyte Esterase Negative (NEGATIVE) Urine RBC 3 /HPF (0-2/HPF) Urine WBC 3 /HPF (0-5/HPF) Urine Squamous Epithelial Cells Many /LPF (</=FEW) Urine Bacteria Few /HPF (NONE-FEW) Urine Hyaline Casts Few /LPF (NONE-FEW) Urine Mucus Few /HPF (NONE-FEW) EKG/Imaging Imaging FACILITY: [facility] PATIENT NAME: Divya Girard : 1965 MR: [id number] V: [id number] EXAM DATE: ORDERING PHYSICIAN: RUDI CALIXTO TECHNOLOGIST: Location: [facility] [place] Patient: Divya Girard : 1965 Visit/Account:[id number] Date of Sevice: 08/16/2018 EXAMINATION: CT abdomen and pelvis with IV contrast HISTORY: Bilateral lower quadrant pain. TECHNIQUE: Axial CT images of the abdomen and pelvis were obtained with IV contrast, with coronal and sagittal 2D reconstructed images. One of the following dose optimization techniques was utilized in the performance of this exam: Automated exposure control; adjustment of the mA and/or kV according to the patient's size; or use of an iterative reconstruction technique. Specific details can be referenced in the facility's radiology CT exam operational policy. Contrast: 75 mL of IV Isovue-[id number]. COMPARISON: 09/05/2017. FINDINGS: Liver: Marked hepatic steatosis with mild generalized hepatomegaly. No focal liver mass. The hepatic veins and portal veins are patent. Gallbladder and bile ducts: Cholecystectomy. No bile duct dilatation. Spleen: Negative. Pancreas: Negative. Adrenal glands: Negative. Kidneys: Negative. No hydronephrosis or urinary calculi. Bowel and peritoneum: The small bowel and colon are normal in caliber. No bowel obstruction. There is mild diffuse colonic wall thickening and enhancement along the sigmoid colon. No discrete colonic diverticula are visualized. Small bowel loops are unremarkable by CT. The appendix is surgically absent. No free fluid or free intraperitoneal air. Pelvic structures: Hysterectomy. The urinary bladder is decompressed. Lymph node assessment: Negative. Vessels: Mild vascular calcifications. Normal caliber abdominal aorta. Musculoskeletal: No acute osseous findings. Prior interbody fusion at L5-S1 with posterior zita and pedicle screw fixation. Body wall: Negative. Lung bases: Negative. IMPRESSION: 1. Mild diffuse colonic wall thickening and enhancement along the sigmoid colon. Appearance is nonspecific and may be compatible with a generalized infectious or inflammatory colitis. No discrete colonic diverticula are visualized. 2. No other acute intra-abdominal findings. 3. Marked hepatic steatosis with generalized hepatomegaly. 4. Prior cholecystectomy, appendectomy, and hysterectomy. Report Dictated By: Ever Gar MD at 08/16/2018 5:15 PM Report E-Signed By: Ever Gar MD at 08/16/2018 5:21 PM WSN:[id number] Course/Re-evaluation ED Course 08/16/2018 6:05:44 pm patient still having nausea despite for Zofran pain somewhat improved after 50 grams of fentanyl. We will dose with IV Phenergan. CT scan is showing mild infectious or inflammatory colitis we'll treat with antibiotics and nausea medicine likely discharge home Decision to Disposition Date: Aug 16, 2018 Decision to Disposition Time: 18:00 Depart Departure Latest Vital Signs Vital Signs Date Time Temp Pulse Resp B/P (MAP) Pulse Ox O2 Delivery O2 Flow Rate FiO2 08/16/18 18:41 86 91 08/16/18 18:36 116/80 (92) 08/16/18 16:47 4.0 08/16/18 16:03 97.6 18 Room Air Impression: Primary Impression: Colitis Additional Impression: Nausea Condition: Improved Disposition: HOME OR SELF-CARE New Scripts Diphenoxylate Hcl/Atropine (LOMOTIL TABLET) 1 Each Tablet 1 EACH PO Q4H for diarrhea, #16 TAB 0 Refills Prov: RUDI CALIXTO MD 08/16/18 Hydrocodone Bit/Acetaminophen (HYDROCODON-ACETAMINOPHEN 5-325) 1 Each Tablet 1 EACH PO Q6H PRN for PAIN, #8 TAB 0 Refills Prov: RUDI CALIXTO MD 08/16/18 Ciprofloxacin Hcl 500 Mg Tab (CIPRO 500 MG TAB) 500 Mg Tablet 500 MG PO BID, #14 TAB 0 Refills Prov: RUDI CALIXTO MD 08/16/18 Metronidazole (FLAGYL) 500 Mg Tablet 500 MG PO BID for 7 Days, #14 TAB 0 Refills Prov: RUDI CALIXTO MD 08/16/18 Promethazine Hcl (PROMETHAZINE HCL) 25 Mg Tablet 25 MG PO Q8H for Nausea, #30 TAB 0 Refills Prov: RUDI CALIXTO MD 08/16/18 Patient Instructions: Infectious Colitis (ED) Additional Instructions: If your symptoms do not improve in 72 hours you should be rechecked either by your primary care provider or here in the emergency department or if at any time if symptoms worsen, you should return for reevaluation. Problem Qualifiers RUDI CALIXTO MD Aug 16, 2018 16:15
[2018-08-16 16:28] LABS: PLATELET COUNT, AUTOMATED 226 K/uL (150-450)
[2018-08-16] MEDS ORDERED: IOPAMIDOL 76% 100 ML INFUS BTL 100 ML ONE (16:49)
[2018-08-16] MEDS ORDERED: POTASSIUM CHL 20 MEQ TABCR PO ONE (17:00)
--- NOTE | 2018-08-16 17:26 | RADIOLOGY IMAGING REPORT ---
FACILITY: [facility] PATIENT NAME: Divya Girard : 1965 MR: [id number] V: [id number] EXAM DATE: ORDERING PHYSICIAN: RUDI CALIXTO TECHNOLOGIST: Location: [facility] [place] Patient: Divya Girard : 1965 Visit/Account:[id number] Date of Sevice: 08/16/2018 EXAMINATION: CT abdomen and pelvis with IV contrast HISTORY: Bilateral lower quadrant pain. TECHNIQUE: Axial CT images of the abdomen and pelvis were obtained with IV contrast, with coronal a nd sagittal 2D reconstructed images. One of the following dose optimization techniques was utilized in the performance of this exam: Autom ated exposure control; adjustment of the mA and/or kV according to the patient's size; or use of an i terative reconstruction technique. Specific details can be referenced in the facility's radiology C T exam operational policy. Contrast: 75 mL of IV [id number]-[id number]. COMPARISON: 09/05/2017. FINDINGS: Liver: Marked hepatic steatosis with mild generalized hepatomegaly. No focal liver mass. The hepatic veins and portal veins are patent. Gallbladder and bile ducts: Cholecystectomy. No bile duct dilatation. Spleen: Negative. Pancreas: Negative. Adrenal glands: Negative. Kidneys: Negative. No hydronephrosis or urinary calculi. Bowel and peritoneum: The small bowel and colon are normal in caliber. No bowel obstruction. There i s mild diffuse colonic wall thickening and enhancement along the sigmoid colon. No discrete colonic d iverticula are visualized. Small bowel loops are unremarkable by CT. The appendix is surgically absen t. No free fluid or free intraperitoneal air. Pelvic structures: Hysterectomy. The urinary bladder is decompressed. Lymph node assessment: Negative. Vessels: Mild vascular calcifications. Normal caliber abdominal aorta. Musculoskeletal: No acute osseous findings. Prior interbody fusion at L5-S1 with posterior zita and pedicle screw fixation. Body wall: Negative. Lung bases: Negative. IMPRESSION: 1. Mild diffuse colonic wall thickening and enhancement along the sigmoid colon. Appearance is nonspe cific and may be compatible with a generalized infectious or inflammatory colitis. No discrete coloni c diverticula are visualized. 2. No other acute intra-abdominal findings. 3. Marked hepatic steatosis with generalized hepatomegaly. 4. Prior cholecystectomy, appendectomy, and hysterectomy. Report Dictated By: Ever Gar MD at 08/16/2018 5:15 PM Report E-Signed By: Ever Gar MD at 08/16/2018 5:21 PM WSN:[id number]
[2018-08-16] MEDS ORDERED: PROMETHAZINE 25 MG/ML 1 ML AMP IVP ONE (18:10)
[2018-08-16] MEDS ORDERED: CIPR-344 PO (18:16)
[2018-08-16] MEDS ORDERED: LOR5/325 PO (18:16)
[2018-08-16] MEDS ORDERED: PROM-110 PO (18:16)
[2018-08-16] MEDS ORDERED: METR-1 PO (18:16)
[2018-08-16] MEDS ORDERED: DIPH-1 PO (18:16)
[2018-08-16 18:36] VITALS: BP 116/80
[2018-08-16] MEDS ORDERED: PROMETHAZINE HCL 25 MG TAB TH 2 TAB/BOTTLE PO ONE (19:15)
[2018-08-16] MEDS ORDERED: METRONIDAZOLE 500 MG TABLET PO ONE (19:15)
[2018-08-16] MEDS ORDERED: CIPROFLOXACIN 500 MG TAB PO ONE (19:15)
[2018-08-16] MEDS ORDERED: ACET/HYDROC 5/325MG TH ER ONLY 2 TAB/BOTTLE ONE (19:17)
== END 2018-08-16 19:20 | disposition home or self-care (01) ==
LOC: ER 15:52
DX: K52.9 Noninfective gastroenteritis and colitis, unspecified (principal); R10.31 Right lower quadrant pain; R11.0 Nausea
CPT/HCPCS: 74177; 81001; 83690; 85025; 96361; 96374; 96375; 99284; A9270; J2405; J2550; J3010; J7030; Q9967; 82040; 82247; 82310; 82374; 82435; 82565; 82947; 84075; 84132; 84155; 84295; 84450; 84460; 84520